=== PATIENT | female | born 1955 | race Caucasian/White ===

== ENCOUNTER → 2018-06-12 15:00 | Outpatient (CLI) | payer OTHER, SELFPAY | PROVIDERS: Family Provider Physician Assistant; PCP Physician Assistant | DX: Z23 Encounter for immunization (principal) | CPT/HCPCS: 90471; 90686 ==

== ENCOUNTER → 2018-07-20 06:51 | Outpatient (CLI) | payer OTHER, SELFPAY ==
[2018-07-20 08:13] LABS: Creatinine Urine Random 289.2 mg/dL
[2018-07-20 08:17] LABS: Microalbumi Creatinin Ratio Ur 4.1 ug/mg CR (<30); Microalbumin Urine Random 1.2 mg/dL (0-1.6)
[2018-07-20 08:21] LABS: Alanine Aminotransferase 36 IU/L (9-52); Albumin 4.3 g/dL (3.5-5.0); Albumin Globulin Ratio 1.4 (1.0-2.8); Alkaline Phosphatase 69 U/L (38-126); Aspartate Aminotransferase 28 IU/L (14-36); Bilirubin Total 0.4 mg/dL (0.2-1.3); Blood Urea Nitrogen 18 mg/dL (7-17); Calcium 9.6 mg/dL (8.4-10.2); Carbon Dioxide 29 mmol/L (22-32); Chloride 104 mmol/L (98-107); Cholesterol 147 mg/dL (140-199); Estimated Glomerular Filt Rate 56.4 mL/min (>60); Glucose 100 mg/dL (80-110); HDL Cholesterol 50 mg/dL (40-60); HEMOLYSIS < 15 (0-50); LDL Cholesterol Calculated 72 mg/dL (<100); Potassium 4.3 mmol/L (3.4-5.1); Sodium 145 mmol/L (137-145); Total Protein 7.3 g/dL (6.3-8.2); Triglycerides 127 mg/dL (35-150)
[2018-07-20 08:53] LABS: Thyroid Stimulating Hormone 1.72 uIU/mL (0.47-4.68)
== END ==
PROVIDERS: PCP Physician Assistant; Visit Provider Physician Assistant
DX: E03.9 Hypothyroidism, unspecified (principal); E78.5 Hyperlipidemia, unspecified; I10 Essential (primary) hypertension
CPT/HCPCS: 36415; 80053; 80061; 82043; 82570; 84443

== ENCOUNTER → 2018-08-17 10:38 | Outpatient (CLI) | payer OTHER, SELFPAY ==
--- NOTE | 2018-08-17 | DI.MG.S_ITS ---
BILATERAL DIGITAL SCREENING MAMMOGRAM 3D/2D WITH CAD: 08/17/2018 CLINICAL: Routine screening. Family history of breast cancer. Comparison is made to exams dated: 05/30/2017 mammogram, 04/18/2016 mammogram, and 12/02/2014 mammogram - [facility]. There are scattered fibroglandular elements in both breasts. Current study was also evaluated with a Computer Aided Detection (CAD) system. There are benign calcifications in both breasts. No significant masses, calcifications, or other findings are seen in either breast. There has been no significant interval change. IMPRESSION: There is no mammographic evidence of malignancy. A 1 year screening mammogram is recommended. This exam was interpreted at Station ID: [id number]. NOTE: For mammograms, a report in lay terms will be sent to the patient. Approximately 15% of breast malignancies will not be visualized mammographically. In the management of a palpable breast mass, a negative mammogram must not discourage biopsy of a clinically suspicious lesion. Electronically Signed By: Ameya hernandez/lola:08/17/2018 17:03:35 letter sent: Normal Exam ACR BI-RADS Category 2: Benign Finding(s) 3342F
== END ==
PROVIDERS: Family Provider Physician Assistant; PCP Physician Assistant; Visit Provider Physician Assistant
DX: Z12.31 Encounter for screening mammogram for malignant neoplasm of breast (principal); Z80.3 Family history of malignant neoplasm of breast
CPT/HCPCS: 77063; 77067

== ENCOUNTER → 2019-06-25 13:23 | Outpatient (CLI) | payer OTHER, SELFPAY | PROVIDERS: PCP Physician Assistant | DX: Z23 Encounter for immunization (principal) | CPT/HCPCS: 90471; 90686 ==

== ENCOUNTER → 2019-12-04 12:59 | Outpatient (CLI) | payer OTHER, SELFPAY ==
--- NOTE | 2019-12-04 13:00 | DI.US.S_ITS ---
PROCEDURE: US THYROID INDICATIONS: MULTINODULAR GOITER TECHNIQUE: Real-time scanning was performed of the thyroid gland, with image documentation. COMPARISON: [facility], US, THYROID, 01/11/2018, 10:48. FINDINGS: Right: Thyroid lobe measures 3.9 x 1.2 x 1.3 cm, and is homogeneous in echotexture. Left: Thyroid lobe measures 3.8 x 1.3 x 1.6 cm, and is homogenous in echotexture. Isthmus: 2 mm thick. Nodule number: One Location: Left inferior lobe Size: 1.4 x 1.2 x 1.0 cm compared to 1.3 x 1.2 x 1.2 cm. Composition: Solid Echogenicity: Hypoechoic Shape: wider than tall. Margins: Smooth Echogenic foci: None Total points: 4 ACR TI-RADS category: 4 Nodule number: 2 Location: Left inferior Size: 1.1 x 0.9 x 0.9 cm compared to 0.8 x 0.7 x 1.0 cm. Composition: Solid Echogenicity: Hypoechoic Shape: wider than tall. Margins: Smooth Echogenic foci: Punctate Total points: 7 ACR TI-RADS category: 5 IMPRESSION: 1. Minimal interval increase in size of lesion #2, now meeting criteria for FNA. 2. Stable appearance of lesion #1 in continued interval followup is recommended. 3. It is noted that the previously identified right inferior lesion is not well-seen on current exam. ACR TI-RADS definitions and recommendations: TI-RADS 1 (benign): 0 points. FNA not needed. TI-RADS 2 (not suspicious): 2 points. FNA not needed. TI-RADS 3 (mildly suspicious): 3 points. * FNA if 2.5 cm or larger, follow up if 1.5 cm or larger (at 1, 3, and 5 years). TI-RADS 4 (moderately suspicious): 4-6 points. * FNA if 1.5 cm or larger, follow up if 1 cm or larger (at 1, 2, 3, and 5 years). TI-RADS 5 (highly suspicious): 7 points or more. * FNA if 1 cm or larger, follow up if 0.5 cm or larger (every year for 5 years). Dictated by: Glenna Colon M.D. on 12/04/2019 at 15:43 Approved by: Glenna Colon M.D. on 12/04/2019 at 15:49
== END ==
PROVIDERS: PCP Student in an Organized Health Care Education/Training Program; Referring Provider Student in an Organized Health Care Education/Training Program; Visit Provider Student in an Organized Health Care Education/Training Program
DX: E04.2 Nontoxic multinodular goiter (principal); E03.9 Hypothyroidism, unspecified; M85.852 Other specified disorders of bone density and structure, left thigh; Z78.0 Asymptomatic menopausal state; Z91.89 Other specified personal risk factors, not elsewhere classified; Z79.899 Other long term (current) drug therapy
CPT/HCPCS: 76536; 77080

== ENCOUNTER → 2019-12-12 09:00 | Outpatient (CLI) | payer OTHER, SELFPAY ==
--- NOTE | 2019-12-12 | PATH_ITS ---
Note [facility] Accession Number: [id number] TESTS RESULT FLAG UNITS REF RANGE LAB Clinician Provided Cytology Information No. of containers..00 Previously Prepared Cytology Slide 35 Unknown Storage/container code(s) THYROID NODULE DIAGNOSIS: 01 LEFT INFERIOR THYROID NODULE, FINE NEEDLE ASPIRATION. NEGATIVE FOR MALIGNANT CELLS. ADEQUATE FOR EVALUATION. COLLOID AND FOLLICULAR GROUPS ARE PRESENT. BENIGN FOLLICULAR (GOITEROUS) NODULE (BETHESDA CATEGORY II), SEE COMMENT. COMMENT: MICROSCOPIC EXAMINATION REVEALS A MODERATELY CELLULAR ASPIRATE, COMPOSED OF COLLOID, FOLLICULAR GROUPS WITHOUT SIGNIFICANT CYTOLOGIC OR ARCHITECTURAL ATYPIA AND BACKGROUND MACROPHAGES. THESE FINDINGS SUPPORT A BENIGN FOLLICULAR (GOITEROUS) NODULE. CORRELATION WITH CLINICAL AND RADIOGRAPHIC FINDINGS IS RECOMMENDED. ACCORDING TO THE BETHESDA REPORTING SYSTEM FOR THYROID CYTOPATHOLOGY, THE RISK OF MALIGNANCY IN THE CATEGORY BENIGN-CATEGORY II IS 0-3%; THEREFORE RECOMMEND CONTINUED ULTRASOUND SURVEILLANCE WITH REPEAT FNA IF THE NODULE SIGNIFICANTLY INCREASES IN SIZE. Pathologist ICD10: 01 E04.2 01 NODULE NUMBER: 2 SIZE: 1.1 X 0.9 X 0.9 CM COMPARED TO 0.8 X 0.7 X 1.0 CM COMPOSITION: SOLID ECHOGENICITY: HYPOECHOIC SHAPE: WIDER THAN TALL. MARGINS: SMOOTH ECHOGENIC FOCI: PUNCTATE TOTAL POINTS: 7 ACR TI-RADS CATEGORY: 5 01 Juan Ansari MD, Pathologist NPI- [id number] Chris Courtney, Logging Equipment Operator ([facility]) 01 30 CC, PINK, CLEAR RECIEVED: 5 ALCOHOL FIXED AND 5 QUICK STAINED SLIDES WITH 1 RNA VIAL FOR FURTHER TESTING. /VDU 12/13/2019 0505 Local FLAG LEGEND: L-Low Normal,H-High Normal,LL-Alert Low,HH-Alert High <-Panic Low,>-Panic High,A-Abnormal,AA-Critical Abnormal Performed at: 01 =[facility] [address] [place] [address] [address], [place] [address] Ameya Otoole MD, Performed at: 01 [facility] [address] [place] [address] [address], [place], [place] [id number] MD Ameya Otoole MD Phone: [phone]
--- NOTE | 2019-12-12 09:02 | DI.US.S_ITS ---
PROCEDURE: US FINE NEEDLE ASPIRATION INDICATIONS: THYROID NODULE, LEFT INFERIOR, LARGEST ON RECENT SCAN TECHNIQUE: The indications, alternatives, benefits, risks, and complications of the procedure were explained to the patient. Written informed consent was obtained and placed in the chart. The thyroid region was examined sonographically and a site was chosen for ultrasound guided percutaneous sampling. The skin was prepared and draped in the usual fashion, and anesthetized with 1% lidocaine infiltrated from the skin down to the thyroid gland. Multiple passes were then performed, with contents emptied into an appropriate pathology specimen container. A bandage was applied to the area of access at completion of the study. COMPARISON: None. FINDINGS: Location(s) of lesion(s) sampled: Inferior left thyroid lobe Banco: 25 gauge hypodermic needles. Number of passes: 5 Medications: 1% lidocaine for local anaesthesia. Complications: None. IMPRESSION: Successful ultrasound-guided thyroid nodule fine needle aspiration, with cytology results pending. Please see chart below for management recommendations based on cytology results. [facility] ReportingRecommendationsNon-diagnostic* Repeat US-guided FNA, with on-site cytology evaluation if possible. * Repeated non-diagnostic nodules without high suspicion US features: close observation vs surgical consult. * Consider surgery if nodule has high suspicion US features, grows >20% in 2 dimensions on followup, or patient has clinical risk factors for malignancy. Benign* If nodule has high suspicion US features: repeat US and FNA within 12 months. * If nodule has low to intermediate suspicion US features: repeat US at 12-24 months. If nodule grows (20% increase in at least 2 dimensions, with minimal increase of 2 mm or >50% change in volume), or development of new suspicious US features, then repeat FNA or continue followup. * If nodule has very low suspicion US features: followup US at >24 months. Atypia of undetermined significance, follicular lesion of undetermined significanceRepeat FNA, molecular testing, followup US, or surgical consult.Follicular neoplasm, suspicious for follicular neoplasmSurgical consult; also consider molecular testing. Suspicious for malignancySurgical consult.MalignantSurgical consult. Dictated by: Chio Partida M.D. on 12/12/2019 at 11:18 Approved by: Chio Partida M.D. on 12/12/2019 at 11:19
== END ==
PROVIDERS: PCP Student in an Organized Health Care Education/Training Program; Referring Provider Student in an Organized Health Care Education/Training Program; Visit Provider Student in an Organized Health Care Education/Training Program
DX: E04.1 Nontoxic single thyroid nodule (principal)
CPT/HCPCS: 10005

== ENCOUNTER → 2019-12-16 10:08 | Outpatient (CLI) | payer OTHER, SELFPAY ==
[2019-12-18 03:54] LABS: COVID19 Sendout Not Detected (Not Detected)
== END ==
PROVIDERS: PCP Student in an Organized Health Care Education/Training Program; Visit Provider Family Medicine
DX: R68.89 Other general symptoms and signs (principal)
CPT/HCPCS: 87635

== ENCOUNTER → 2020-05-27 07:56 | Outpatient (CLI) | payer OTHER, SELFPAY ==
[2020-05-27 09:27] LABS: Clostridium Difficile Tox PCR Negative for C. diff
[2020-05-29 18:01] LABS: Lactoferrin, Fecal Quant 4.69 ug/mL(g) (0.00-7.24)
== END ==
PROVIDERS: PCP Student in an Organized Health Care Education/Training Program; Referring Provider Student in an Organized Health Care Education/Training Program; Visit Provider Student in an Organized Health Care Education/Training Program
DX: K52.9 Noninfective gastroenteritis and colitis, unspecified (principal)
CPT/HCPCS: 36415; 83631; 87493

== ENCOUNTER → 2020-11-18 15:17 | Outpatient (CLI) | payer OTHER, SELFPAY ==
[2020-11-18 16:22] LABS: BUN Creatinine Ratio 19.8 (6-22); Blood Urea Nitrogen 22 mg/dL (7-17); Calcium 9.9 mg/dL (8.4-10.2); Carbon Dioxide 30 mmol/L (22-32); Chloride 104 mmol/L (98-107); Estimated Glomerular Filt Rate 49.6 mL/min (>60); Glucose 103 mg/dL (80-110); HEMOLYSIS 18 (0-50); Potassium 4.2 mmol/L (3.4-5.1); Sodium 139 mmol/L (137-145)
== END ==
PROVIDERS: PCP Student in an Organized Health Care Education/Training Program; Referring Provider Student in an Organized Health Care Education/Training Program; Visit Provider Student in an Organized Health Care Education/Training Program
DX: I10 Essential (primary) hypertension (principal)
CPT/HCPCS: 36415; 80048

== ENCOUNTER → 2020-11-27 09:34 | Outpatient (CLI) | payer OTHER, SELFPAY ==
--- NOTE | 2020-11-27 09:35 | DI.MG.S_ITS ---
BILATERAL DIGITAL SCREENING MAMMOGRAM 3D/2D WITH CAD: 11/27/2020 CLINICAL: Routine screening. Family history of breast cancer. Comparison is made to exams dated: 08/17/2018 mammogram, 05/30/2017 mammogram, and 04/18/2016 mammogram - [facility]. There are scattered fibroglandular elements in both breasts. Current study was also evaluated with a Computer Aided Detection (CAD) system. There are benign calcifications in both breasts. No significant masses, calcifications, or other findings are seen in either breast. There has been no significant interval change. IMPRESSION: BENIGN There is no mammographic evidence of malignancy. A 1 year screening mammogram is recommended. This exam was interpreted at Station ID: [id number]. NOTE: For mammograms, a report in lay terms will be sent to the patient. Approximately 15% of breast malignancies will not be visualized mammographically. In the management of a palpable breast mass, a negative mammogram must not discourage biopsy of a clinically suspicious lesion. Electronically Signed By: Ameya hernandez/lola:11/27/2020 10:09:39 letter sent: Normal Exam ACR BI-RADS Category 2: Benign Finding(s) 3342F
== END ==
PROVIDERS: PCP Student in an Organized Health Care Education/Training Program; Referring Provider Student in an Organized Health Care Education/Training Program; Visit Provider Student in an Organized Health Care Education/Training Program
DX: Z12.31 Encounter for screening mammogram for malignant neoplasm of breast (principal); Z80.3 Family history of malignant neoplasm of breast
CPT/HCPCS: 77063; 77067

== ENCOUNTER → 2020-12-03 10:40 | Outpatient (CLI) | payer OTHER, SELFPAY ==
[2020-12-03 10:45] LABS: WBC Urine None Seen (0-5/HPF)
[2020-12-03 11:13] LABS: BUN Creatinine Ratio 18.7 (6-22); Blood Urea Nitrogen 20 mg/dL (7-17); Estimated Glomerular Filt Rate 51.8 mL/min (>60)
[2020-12-03 11:31] LABS: Appearance Urine UA CLEAR; Bilirubin Urine UA NEGATIVE (NEGATIVE); Color Urine UA YELLOW; Glucose Urine UA NEGATIVE (Negative); Ketones Urine UA NEGATIVE (NEGATIVE); Leukocyte Esterase Urine UA NEGATIVE (NEGATIVE); Nitrite Urine UA NEGATIVE (Negative); Occult Blood Urine UA 3+ (Negative); Protein Urine UA NEGATIVE (Negative); Specific Gravity Urine UA <=1.005 (1.000-1.035); Urobilinogen Urine UA 0.2 E.U./dL (0.2)
[2020-12-03 11:49] LABS: pH Urine UA 6.5 (4.5-8.0)
[2020-12-03 11:50] LABS: Bacteria Urine Occasional (0-1); Culture Indicated Urine Cult Not Indicated; RBC Urine 10-30/HPF (0-5/HPF); Squamous Epithelial Cell Urine 0-1 /HPF (0-5/HPF)
== END ==
PROVIDERS: PCP Student in an Organized Health Care Education/Training Program; Referring Provider Student in an Organized Health Care Education/Training Program; Visit Provider Student in an Organized Health Care Education/Training Program
DX: I10 Essential (primary) hypertension (principal); N17.9 Acute kidney failure, unspecified
CPT/HCPCS: 36415; 81001; 82565; 84520

== ENCOUNTER → 2020-12-11 09:34 | Outpatient (CLI) | payer OTHER, SELFPAY ==
--- NOTE | 2020-12-11 09:39 | DI.CT.S_ITS ---
PROCEDURE: CT ABDOMEN PELVIS WO/W CON INDICATIONS: Hematuria TECHNIQUE: Optional 5 mm thick noncontrast images acquired from the diaphragm to the symphysis pubis. After the administration of intravenous contrast, 5 mm thick images acquired from the diaphragm to the symphysis pubis after a 10-minute delay. 2 mm thick coronal and sagittal reformats were then performed of the kidneys and ureters. For radiation dose reduction, the following was used: automated exposure control, adjustment of mA and/or kV according to patient size. COMPARISON: None. FINDINGS: Image quality: Excellent. Lung bases: Lung bases are clear. Heart size is normal. Urinary system: Both kidneys are normal in size, without hydronephrosis or nephrolithiasis on pre-contrast images. No perinephric fat stranding. There is normal bilateral renal enhancement. Renal calyces appear normal in morphology when filled with contrast. Opacified portions of both ureters demonstrate normal caliber. Bladder wall thickness is normal. No calcified bladder stones. Other solid organs: Liver is normal in size and enhancement. Gallbladder appears normal . Biliary system is non dilated. Pancreas enhances normally. Spleen is normal in size and enhancement. No adrenal nodules. Peritoneum and bowel: Bowel loops demonstrate normal wall thickness and caliber. No free fluid or air. Nodes and vessels: No retroperitoneal or mesenteric adenopathy by size criteria. Aorta and inferior vena cava are normal in size. Abdominal wall: No ventral hernias. Pelvis: No pathologic free pelvic fluid. No inguinal hernias or adenopathy. Bones: No suspicious bony lesions. No vertebral body compression fractures. IMPRESSION: A urinary tract stone, urothelial mass, or renal cortical mass lesion is not seen. A source of hematuria is not identified. Dictated by: Ced Cancino M.D. on 12/11/2020 at 10:15 Approved by: Ced Cancino M.D. on 12/11/2020 at 10:15
== END ==
PROVIDERS: PCP Student in an Organized Health Care Education/Training Program; Referring Provider Student in an Organized Health Care Education/Training Program; Visit Provider Student in an Organized Health Care Education/Training Program
DX: R31.9 Hematuria, unspecified (principal)
CPT/HCPCS: 74178; Q9967

== ENCOUNTER → 2021-02-02 09:08 | Outpatient (CLI) | payer OTHER, SELFPAY ==
--- NOTE | 2021-02-02 | DI.US.S_ITS ---
PROCEDURE: US ABDOMEN COMPLETE INDICATIONS: EPIGASTRIC PAIN TECHNIQUE: Real-time scanning was performed of the abdominal and retroperitoneal organs, with image documentation. COMPARISON: [facility], CT, ABDOMEN/PELVIS WITH CONTRAST, 06/08/2011, 12:11. [facility], CT, ABDOMEN/PELVIS WITH CONTRAST, 12/20/2012, 8:41. [facility], CT, CT ABDOMEN PELVIS WO/W CON, 12/11/2020, 9:39. FINDINGS: Liver: Liver is normal in size and demonstrates diffusely increased echotexture. The main portal vein is patent measuring 7.6 mm in diameter and demonstrates hepatopetal flow. Gallbladder: There is a 1.2 x 1.3 x 1.0 cm hypoechoic mass involving the anterior wall of the gallbladder. On Doppler ultrasound, no definitive vascularity within the mass. The mass was present on the comparison CT dated 12/11/2020 and 12/20/2012 demonstrates mild contrast enhancement. No gallstones, gallbladder wall thickening, pericholecystic fluid collection or sonographic Ca sign. Biliary ducts: Intrahepatic bile ducts are non-dilated. Extrahepatic bile duct caliber measures 2.7 mm. Normal is 6-7 mm or less in diameter, or 10 mm or less post-cholecystectomy. Pancreas: Visualized portions of the pancreas are sonographically normal. Spleen: Spleen is normal in size and homogeneous in echotexture. Kidneys: Kidneys are normal in size and echotexture. Right kidney measures 9.4 cm long; left kidney measures 9.6 cm long. No hydronephrosis or nephrolithiasis. No solid masses. Aorta: Visualized aorta is normal in caliber at less than 3 cm. Iliacs: Proximal common iliac arteries are normal in caliber at less than 2.5 cm. IVC: Intrahepatic inferior vena cava is patent. Miscellaneous: No free abdominal fluid. IMPRESSION: 1. There is a 1.2 x 1.3 x 1.0 cm mass involving the anterior wall of the gallbladder. On Doppler ultrasound, there is no internal vascularity can be seen. This was visualized on the comparison CTs and demonstrated mild post contrast enhancement. Differential diagnosis include a small gallbladder diverticulum with impacted stone versus a polypoid mass. Recommend surgical consultation. 2. Otherwise normal exam. Dictated by: Chio Partida M.D. on 02/02/2021 at 10:28 Approved by: Chio Partida M.D. on 02/02/2021 at 13:20
== END ==
PROVIDERS: PCP Student in an Organized Health Care Education/Training Program; Referring Provider Internal Medicine Gastroenterology; Visit Provider Internal Medicine Gastroenterology
DX: R10.13 Epigastric pain (principal); K82.9 Disease of gallbladder, unspecified
CPT/HCPCS: 76700

== ENCOUNTER → 2021-03-02 15:06 | Outpatient (CLI) | payer OTHER, SELFPAY ==
[2021-03-02 15:58] LABS: COVID19 -Nasal RAPID Negative (Negative)
== END ==
PROVIDERS: PCP Student in an Organized Health Care Education/Training Program; Visit Provider Specialist
DX: Z20.822 Contact with and (suspected) exposure to COVID-19 (principal)
CPT/HCPCS: 87635; C9803

== ENCOUNTER 2021-03-03 13:05 | Day surgery (SDC) | payer OTHER, SELFPAY ==
[2021-03-03] VITALS (16 sets, daily range): BP systolic 107–133; BP diastolic 47–82; PULSE 71–98; RESP 11–18; TEMP 36.3–36.4; O2SAT 88–100; BMI 29.4
[2021-03-03] MEDS: LACTATED RINGERS 1,000 ML 100 ML IV ×2 (13:39→17:18)
--- NOTE | 2021-03-03 14:54 | PM.PREOP ---
Pre-operative Note COVID-19 COVID-19 status: Negative Result date/Date tested (Pos, Neg/Pending): 03/02/21 Interval Note History & Physical reviewed/Exam performed by Physician: Yes Changes to H&P: No
--- NOTE | 2021-03-03 15:45 | SUR.OPER ---
Supine on padded OR bed, head on pillow, safety belt at thigh, left arm padded and tucked at side. Right arm secured on padded arm oard <90 degrees abduction. Legs uncrossed. Padded footboard in place. Tape over blanket to secure lower legs.
[2021-03-03] MEDS: CEFAZOLIN 1 GM VIAL 2 GM IV (15:49)
[2021-03-03] MEDS: BUPIVACAINE 0.5% (PF) VIAL 30 ML INJ (15:51)
--- NOTE | 2021-03-03 17:46 | PM.OP.1 ---
Operative Date/Time/Diagnoses Date of procedure: 03/03/21 Time of procedure: 17:46 Pre-op diagnosis: Gallbladder polyp 1.3 cm in diameter Post-op diagnosis: other (Possible right hepatic or common duct injury. Procedure abandoned due to concern of ductal injury.) Procedure & Clinicians Procedure: Laparoscopic cholecystectomy. Procedure abandoned. See details below. Same procedure as scheduled: No Indications: Gallbladder polyp Surgeon: Jose Canales Click Yes if Unassisted: Yes Anesthesia Type: General Operative Notes Findings: Concern that I have divided a ductal structure. Please see details in the operative report And photos. Closure Type: primary Specimen(s): none sent Prosthetic devices, grafts, tissues, transplants, or devices: None Estimated Blood Loss (mL): 5 Blood products transfused: none Procedure in detail: The patient was placed supine on the operating room table underwent general endotracheal anesthesia. He was prepped draped in the usual fashion. Local anesthetic was infiltrated beneath the umbilicus a small curvilinear incision made there. It was carried down under direct vision in the peritoneal cavity. Stay sutures of 0 Vicryl were placed in the fascia. 12 mm port was inserted and the abdomen is insufflated. The patient was reposition and 3 additional (5 mm) ports were placed under the right costal margin. The gallbladder is identified and what appeared to be the polyp was seen at the top of the gallbladder. I grasped below it and elevated the gallbladder. Dissection was begun near the end of the gallbladder. The stomach was a little distended so an NG tube was placed to improve visualization. The gallbladder was encased in Fat along most of its surface. Because I was doing this for potentially neoplastic process and did not want to violate the planes of the surface of the gallbladder I decided to leave this in place and began my it dissection at what appeared to be the end of the gallbladder. I carefully incised along the surface of the fat at the end of the gallbladder and dissected bluntly to identify a structure that appeared to be the cystic duct going directly to the gallbladder. I it from surrounding structures. On its' surface it appeared to have the cystic artery as well. I could not easily dissect between them so I placed clips across both structures. I divided it leaving 4 clips on the side to remain in the patient. It did appear to pulsate. I encountered some strands of tissue that I thought could be venous and placed clips across this and divided it leaving these 2 clips in the patient. the clip on the end of the gallbladder came off and I placed a loop tie on the end to secure it. I began to bluntly dissect along the posterior aspect of the gallbladder and encountered another vascular structure. I was concerned that this might represent the right hepatic artery and left it intact. However as I dissected along the soft tissues at the medial edge of the end of the gallbladder near its junction with the liver, I encountered what appeared to be another ductal structure. Using principally blunt dissection I out a portion of this from surrounding structures leaving the posterior aspect intact. I became quite concerned that I was dealing with either a divided right hepatic duct or a divided common hepatic duct. I asked my partner to join me at this point in the operation. We examined the area together with no further work other than trimming the tails on the PDS tie. I decided to stop the procedure rather than risk any other injury to vital structures. The gallbladder appeared to be viable and intact. There was no leakage of material from the gallbladder or anywhere else in the region. My partner closed the patient tieing sutures at the umbilicus and closing the skin in all areas as I began making calls to transfer the patient to [facility] and make sure the insurance would allow transfer to [facility]. The patient was extubated and taken the recovery area in good condition. In the interim I have talked to the liver transplant surgeon at [facility] Dr. Fong. I explained my concern and that unfortunately we did not have the ability to do an ERCP to make a definitive diagnosis. Dr. Fong referred me to the chief resident for surgery protection agent who then referred me to Dr. Winters. He kindly accepted the patient in transfer to Acute Care Surgery when a bed was available. Complications: none Post-operative Condition: stable Disposition: PACU Plan for aftercare: Bring into observation until a bed is ready at [facility]
[2021-03-03] MEDS: fentaNYL 100 MCG/2 ML INJ IV (17:51)
[2021-03-03] MEDS: MEPERIDINE 50 MG/ML INJ 25 MG IV (18:34)
[2021-03-03 19:23] LABS: Add Manual Diff / Slide Review NO; Basophils Absolute Auto 0 /uL (0-100); Basophils Percent Auto 0.2 % (0-2); Eosinophils Absolute Auto 0 /uL (0-450); Eosinophils Percent Auto 0.3 % (2-4); Hematocrit 42.5 % (36-46); Hemoglobin 14.2 g/dL (12.0-16.0); Lymphocytes Absolute Auto 700 /uL (1100-4500); Lymphocytes Percent Auto 6.1 % (25-40); Mean Corpuscular HGB Conc 33.4 % (30-36); Mean Corpuscular Hemoglobin 29.2 PG (26-34); Mean Corpuscular Volume 87.4 fL (80-100); Monocytes Absolute Auto 300 /uL (0-900); Monocytes Percent Auto 2.3 % (3-14); Neutrophils Absolute Auto 10500 /uL (1500-7000); Neutrophils Percent Auto 91.1 % (50-75); Platelet Count 180 X10^3/uL (150-400); Red Blood Cell Count 4.86 X10^6/uL (4.0-5.2); Red Cell Distribution Width 13.4 % (11.6-14.8); White Blood Cell Count 11.5 X10^3/uL (4.5-11.0)
--- NOTE | 2021-03-03 19:29 | P.DS_ITS ---
History of Present Illness History of Present Illness Date Patient Seen: 03/03/21 Time Patient Seen: 19:29 Chief complaint: SDC Narrative: Patient is a woman who has a history of mild hypothyroidism, reflux disease, distant history of asthma, and sleep apnea who was brought for a laparoscopic cholecystectomy due to a gallbladder polyp. During the procedure I was concerned that I may have injured her liver ductal system and stop the operation and made arrangements for transfer to [facility]. Discharge Providers Provider Discharge Date: 03/03/21 Primary care physician: Rian Ruiz MD Consults: 03/03/21 18:57 Consult to Discharge Planning Routine Comment: Discharge provider: Jose Canales MD Summary Hospital Course Discharge Diagnosis: Possible liver duct injury. History of asthma. Hypothyroidism chronic Chronic sleep apnea using a CPAP device. Elevated cholesterol chronic on medication. Hospital Course: Patient underwent a laparoscopic exploration but the procedure was abandoned in the early stages due to concern over possible ductal injury. I talked to her and her about my concerns. I talked to them about transfer to [facility] and they were in agreement. I explained that she will probably have an ERCP. I explained that she may require an open major operation if my concern is realized. If she has a normal ERCP they may be able to proceed laparoscopically to complete the operation I started. I answered all of their questions. Await transfer. Status at Discharge Cognitive/behavioral status at discharge: oriented Functional status at discharge: bed bound (Fresh postop. Expect her to be independently ambulatory once the effects of the operation wear off.) Overall status at discharge: patient is not back to baseline Exam Vital Signs (past 8 hours): - 03/03/21 13:24 03/03/21 17:29 03/03/21 17:34 Temperature 97.4 F L 97.5 F L Pulse Rate 71 92 H 91 H Respiratory Rate 16 15 14 Blood Pressure 133/82 109/53 L 107/49 L Pulse Oximetry 99 95 96 03/03/21 17:39 03/03/21 17:44 03/03/21 17:55 Temperature Pulse Rate 91 H 90 94 H Respiratory Rate 12 11 L 14 Blood Pressure 114/55 L 111/47 L 112/52 L Pulse Oximetry 93 88 L 98 03/03/21 18:04 03/03/21 18:09 03/03/21 18:14 Temperature Pulse Rate 88 89 96 H Respiratory Rate 11 L 12 12 Blood Pressure 122/60 120/64 132/67 Pulse Oximetry 94 94 99 03/03/21 18:29 03/03/21 18:38 03/03/21 19:00 Temperature 97.3 F L 97.6 F Pulse Rate 94 H 97 H 98 H Respiratory Rate 12 12 18 Blood Pressure 132/67 114/64 124/67 Pulse Oximetry 94 94 Oxygen Delivery Method Nasal Cannula Oxygen Flow Rate 4 Narrative Exam Narrative: Dressings dry and intact. Patient a little somnolent but alert. Presently on supplemental oxygen in the acute postop period. She does not normally use oxygen at home. Objective Labs Result Diagrams: 03/03/21 19:17 03/03/21 19:17 Labs: Postop elevated AST 150 (normal less than 36) Postop elevated ALT 71 (normal less than 55) Alkaline phosphatase normal 84 (normal less than 126) Bilirubin normal 0.8 (normal less than 1.2) [facility], [facility] Medical History Asthma Colon polyps (03/01/16) Diverticular disease Endocervical polyp (03/24/06) GERD (gastroesophageal reflux disease) Hayfever Hyperlipidemia Hypertension Hypothyroidism Left ankle pain Nephrolithiasis (12/06/02) Osteopenia (12/27/16) Sleep apnea Thyroid nodule (2008) Surgical History (Updated 02/26/21 @ 13:28 by Raya Prado RN) History of colonoscopy (01/30/09) History of colonoscopy (02/2021) History of colonoscopy with polypectomy (03/01/16) History of colonoscopy with polypectomy (01/07/13) History of esophagogastroduodenoscopy (EGD) (02/2021) History of foot surgery History of lumpectomy (1983) Status post breast biopsy (1989) Status post rotator cuff repair (07/2016) Family History Mother Asthma Hypertension Sister Hypertension Social History household members: spouse Smoking Status: Former smoker Tobacco: How many years used: 6 second hand exposure: No alcohol intake: current substance use type: does not use Discharge Plan Discharge orders & Medications Prescriptions: No Action multivitamin [Multiple Vitamins] 1 EACH tablet 1 tab PO QDAY Qty: 0 RF: 0 albuterol sulfate [Ventolin HFA] 90 mcg/actuation HFA aerosol inhaler 2 puff inhalation Q4-6H PRN (Reason: shortness of breath or wheezing) Qty: 6.7 RF: 11 atorvastatin [Lipitor] 20 mg tablet 20 mg PO HS Qty: 90 RF: 3 Flovent HFA 110 mcg/actuation HFA aerosol inhaler 1 puff Inhalation Q12H Qty: 12 RF: 11 levothyroxine [Synthroid] 75 mcg tablet 75 mcg PO QAM Qty: 90 RF: 3 losartan 25 mg tablet 25 mg PO BID Qty: 180 RF: 3 metoprolol succinate [Toprol XL] 25 mg tablet extended release 24 hr 12.5 mg PO QDAY Qty: 45 RF: 3 omeprazole 20 mg capsule,delayed release(DR/EC) 20 mg PO BID Qty: 180 RF: 3 Hold Instructions: Trial of cessation ondansetron 4 mg tablet,disintegrating 4 mg PO Q8H PRN (Reason: nausea and vomiting) Qty: 10 RF: 11 ondansetron HCl [Zofran] 4 mg Tablet 4 mg PO Q6H PRN (Reason: Headache) RF: 0 Discharge Data Primary Care Provider: Rian Ruiz Attending Provider: Jose Canales
[2021-03-03 19:41] LABS: Alanine Aminotransferase 71 IU/L (<35); Albumin Globulin Ratio 1.3 (1.0-2.8); Alkaline Phosphatase 84 U/L (38-126); Aspartate Aminotransferase 150 IU/L (14-36); BUN Creatinine Ratio 18.9 (6-22); Bilirubin Total 0.8 mg/dL (0.2-1.3); Blood Urea Nitrogen 21 mg/dL (7-17); Calcium 9.4 mg/dL (8.4-10.2); Carbon Dioxide 29 mmol/L (22-32); Chloride 104 mmol/L (98-107); Estimated Glomerular Filt Rate 49.6 mL/min (>60); Globulin 3.1 g/dL (1.7-4.1); Glucose 128 mg/dL (80-110); HEMOLYSIS < 15 (0-50); Potassium 3.6 mmol/L (3.4-5.1); Sodium 139 mmol/L (137-145); Total Protein 7.1 g/dL (6.3-8.2)
--- NOTE | 2021-03-03 20:12 | PC.NURSE ---
admit/Evening Shift Note- Patient marrivedm via stretcher from PACU at 1900. Slider board used to transfer patient to bed. Admit questions done, physical assessment done, medications reviewed, and skin check completed. Patient orient to bed and bed controls, room, lights, phone, and call ramachandran/tv remote. Safety measures in place. Patient agrees to call for assistance. Bed alarm activated. Call ramachandran and phone within reach will continue to monitor.
[2021-03-03] MEDS: HYDROMORPHONE 1 MG INJ IV (20:39)
[2021-03-03] MEDS: METOPROLOL ER 25 MG TABLET PO (20:39)
[2021-03-03] MEDS: PANTOPRAZOLE DR 20 MG TABLET PO (20:39)
[2021-03-03] MEDS: LACTATED RINGERS 1,000 ML 125 ML IV (20:43)
--- NOTE | 2021-03-03 21:56 | PC.NURSE ---
Transfer Note- Patient transfer to [facility] in [facility] per Dr. Canales. Patient transport by ALS ambulance. Patient left via ambulance with IV LR running at 125cc/hr and with all personal items at 2115. Report called to RN at [facility] at 2100. Patients given address and phone number for [address]
== END 2021-03-03 21:15 | disposition short-term general hospital (02) ==
LOC: OR 13:06 → AC 18:03
PROVIDERS: PCP Student in an Organized Health Care Education/Training Program; Referring Provider Specialist; Visit Provider Specialist
PROC: 0FT44ZZ Resection of Gallbladder, Percutaneous Endoscopic Approach (ICD-10-PCS; CPT 47562; principal; 2021-03-03 14:15)
DX: K82.8 Other specified diseases of gallbladder (principal); Z53.8 Procedure and treatment not carried out for other reasons; I10 Essential (primary) hypertension; E03.9 Hypothyroidism, unspecified; J45.909 Unspecified asthma, uncomplicated
CPT/HCPCS: 47562; 36415; 80053; 85025; J0690; J1100; J1170; J2175; J2405; J2704; J3010

== ENCOUNTER → 2022-01-21 11:20 | Outpatient (CLI) | payer OTHER, SELFPAY ==
[2021-03-03 18:35] VITALS: BMI 29.4
--- NOTE | 2022-01-21 11:21 | DI.MG.S_ITS ---
BILATERAL DIGITAL SCREENING MAMMOGRAM 3D/2D WITH CAD: 01/21/2022 CLINICAL: Routine screening. Family history of breast cancer. Comparison is made to exams dated: 11/27/2020 mammogram, 08/17/2018 mammogram, 04/18/2016 mammogram, and 05/30/2017 mammogram - [facility]. There are scattered fibroglandular elements in both breasts. Current study was also evaluated with a Computer Aided Detection (CAD) system. There are benign calcifications in both breasts. No significant masses, calcifications, or other findings are seen in either breast. There has been no significant interval change. IMPRESSION: BENIGN There is no mammographic evidence of malignancy. A 1 year screening mammogram is recommended. This exam was interpreted at Station ID: [id number]. NOTE: For mammograms, a report in lay terms will be sent to the patient. Approximately 15% of breast malignancies will not be visualized mammographically. In the management of a palpable breast mass, a negative mammogram must not discourage biopsy of a clinically suspicious lesion. Electronically Signed By: Ralph saldana/lola:01/21/2022 13:09:14 letter sent: Normal Exam ACR BI-RADS Category 2: Benign Finding(s) 3342F
== END ==
PROVIDERS: PCP Student in an Organized Health Care Education/Training Program; Referring Provider Student in an Organized Health Care Education/Training Program; Visit Provider Student in an Organized Health Care Education/Training Program
DX: Z12.31 Encounter for screening mammogram for malignant neoplasm of breast (principal); Z80.3 Family history of malignant neoplasm of breast
CPT/HCPCS: 77063; 77067

== ENCOUNTER → 2022-03-22 16:34 | Outpatient (CLI) | payer MEDICARE, OTHER, SELFPAY ==
[2021-03-03 18:35] VITALS: BMI 29.4
[2022-03-22 18:02] LABS: Alanine Aminotransferase 32 IU/L (<35); Albumin 4.4 g/dL (3.5-5.0); Albumin Globulin Ratio 1.3 (1.0-2.8); Alkaline Phosphatase 84 U/L (38-126); Aspartate Aminotransferase 37 IU/L (14-36); BUN Creatinine Ratio 17.7 (6-22); Bilirubin Total 0.4 mg/dL (0.2-1.3); Blood Urea Nitrogen 22 mg/dL (7-17); Calcium 9.8 mg/dL (8.4-10.2); Carbon Dioxide 31 mmol/L (22-32); Chloride 103 mmol/L (98-107); Estimated Glomerular Filt Rate 49 mL/min (>60); Globulin 3.3 g/dL (1.7-4.1); Glucose 95 mg/dL (80-110); HEMOLYSIS < 15 (0-50); Lipase 95 U/L (23-300); Potassium 4.3 mmol/L (3.4-5.1); Sodium 140 mmol/L (137-145); Total Protein 7.7 g/dL (6.3-8.2)
[2022-03-22 18:32] LABS: TSH w/ Reflex to FT4 1.08 uIU/mL (0.47-4.68)
== END ==
PROVIDERS: PCP Student in an Organized Health Care Education/Training Program; Referring Provider Student in an Organized Health Care Education/Training Program; Visit Provider Student in an Organized Health Care Education/Training Program
DX: E03.9 Hypothyroidism, unspecified (principal); R10.13 Epigastric pain; S36.13XA Injury of bile duct, initial encounter; I10 Essential (primary) hypertension; K21.9 Gastro-esophageal reflux disease without esophagitis
CPT/HCPCS: 36415; 80053; 83690; 84443

== ENCOUNTER → 2022-10-04 07:46 | Outpatient (CLI) | payer MEDICARE, OTHER, SELFPAY ==
[2021-03-03 18:35] VITALS: BMI 29.4
--- NOTE | 2022-10-04 07:47 | DI.ECHO.S_ITS ---
[facility] +---------+ : : [address] : : : : [id number] : : : : Phone: [phone]+ Echocardiogram Report + + :Name: LUIS MATTHEW Study Date: 10/04/2022 Height: 64 in : :[facility] ReadingLocation: Weight: 175 lb : : Gender: Female BSA: 1.8 m2 : :: 1955 Age: 67 yrs BP: 113/75 mmHg: :Reason For Study: EXERCISE INTOLERANCE : :Ordering Physician: GOYO, : :SHAYE Performed By: Carmen Jackson : :Referring: SHAYE NANCE : + + Interpretation Summary The left ventricle is normal in size. There is mild concentric left ventricular hypertrophy. Left ventricular systolic function appears normal without focal wall motion abnormalities. The ejection fraction is estimated to be 60-65%. Diastolic parameters suggest a pseudonormalization pattern, consistent with probable elevated filling pressures. The right ventricle is normal in size and function. Pulmonary artery pressures cannot be estimated because of the lack of a measurable TR jet velocity. The left atrial size is normal. Right atrial size is normal. There is mild mitral regurgitation. There is no other significant valvular heart disease. The aortic root is normal size. Procedure: A two-dimensional transthoracic echocardiogram with color flow and Doppler was performed. The study quality was technically adequate. There is no prior echocardiogram noted for this patient. The patient was in sinus rhythm with heart rates between 59-67 bpm during the exam. Left Ventricle: The left ventricle is normal in size. There is mild concentric left ventricular hypertrophy. Left ventricular systolic function appears normal without focal wall motion abnormalities. The ejection fraction is estimated to be 60-65%. Diastolic parameters suggest a pseudonormalization pattern, consistent with probable elevated filling pressures. Right Ventricle: The right ventricle is normal in size and function. Atria: The left atrial size is normal. Right atrial size is normal. There is no Doppler evidence for an interatrial shunt. Mitral Valve: The mitral valve is normal in structure and function. There is mild mitral regurgitation. Aortic Valve: The aortic valve is trileaflet. The aortic valve opens well. There is no aortic valve stenosis. No aortic regurgitation is present. Tricuspid Valve: The tricuspid valve is normal in structure and function. There is trace tricuspid regurgitation. Pulmonary artery pressures cannot be estimated because of the lack of a measurable TR jet velocity. Pulmonic Valve: The pulmonic valve is not well visualized. There is no pulmonic valvular regurgitation. There is no other significant valvular heart disease. Great Vessels: The aortic root is normal size. The dimensions of the ascending aorta are normal. The IVC is of normal diameter and collapses greater than 50% with a sniff. This suggests a low right atrial pressure of 3 mm Hg. Pericardium/ Pleura There is no pericardial effusion. There is no pleural effusion. MMode/2D Measurements & Calculations LVIDd: 4.2 cm LVOT diam: 2.1 cm LVIDs: 3.1 cm Ao root diam: 3.7 cm FS: 27.6 % asc Aorta Diam: 3.4 cm IVSd: 1.1 cm Ao Arch Diam (Prox Trans): 2.6 cm LVPWd: 1.1 cm LV cotto. diameter/BSA (cm/m^2): 2.3 LV sys. diameter/BSA (cm/m^2): 1.7 LA A2 area: 18.5 cm2 RA long axis: 4.7 cm LA A4 area: 14.3 cm2 RA area: 13.1 cm2 LA length (vol): 5.0 cm RA vol: 30.9 ml LA vol: 44.8 ml RA : 16.7 ml/m2 LA vol index: 24.2 ml/m2 IVC diam: 1.3 cm RVD1 (basal): 2.9 cm RVD2 (mid): 2.4 cm TAPSE: 2.1 cm Doppler Measurements & Calculations Ao V2 max: 126.4 cm/sec LVOT Max Serge: 119.6 cm/sec Ao V2 mean: 88.3 cm/sec LV V1 max P.7 mmHg Ao max P.4 mmHg LV V1 VTI: 27.6 cm Ao mean P.5 mmHg RUTHIE(I,D): 3.5 cm2 Ao V2 VTI: 26.2 cm RUTHIE(V,D): 3.2 cm2 sev ratio: 1.1 RUTHIE indexed to BSA (cm^2/m^2): 1.9 MV E max serge: 91.5 cm/sec PA V2 max: 100.9 cm/sec MV A max serge: 80.4 cm/sec PA V2 mean: 75.4 cm/sec MV E/A: 1.1 PA mean P.5 mmHg Med Peak E' Serge: 5.2 cm/sec PA pr(Accel): 41.3 mmHg E/E' med: 17.7 Lat Peak E' Serge: 7.1 cm/sec E/E' lat: 12.8 E/e' average: 15.2 MV dec time: 0.20 sec SV(OT): 92.9 ml Reading Physician:09:46 AM
== END ==
PROVIDERS: PCP Student in an Organized Health Care Education/Training Program; Referring Provider Student in an Organized Health Care Education/Training Program; Visit Provider Student in an Organized Health Care Education/Training Program
DX: R68.89 Other general symptoms and signs (principal); I34.0 Nonrheumatic mitral (valve) insufficiency
CPT/HCPCS: 93306

== ENCOUNTER → 2022-10-24 13:18 | Outpatient (CLI) | payer MEDICARE, OTHER, SELFPAY ==
[2021-03-03 18:35] VITALS: BMI 29.4
--- NOTE | 2022-11-11 16:10 | PM.CARDMON.1 ---
Veterinary Technician Report Referral & Results Date Patient Seen: 10/24/22 Requesting provider: Rian Ruiz Duration of monitoring (days): 10 Diary information: There were 9 patient triggered events and 8 patient diary entries Patient triggered events were variably associated with (within 45 seconds) PVCs, PACs, ventricular bigeminy and ventricular trigeminy Patient diary events were variably associated with (within 45 seconds) sinus rhythm, PVCs including ventricular bigeminy and ventricular trigeminy Data: Minimum heart rate identified was 47 beats per minute at 05:09 on 10/25/2022 Maximum sinus heart rate was 147 beats per minute at 19:43 on 10/27/2022 Maximum overall heart rate was 184 beats per minute at 09:09 on 10/26/2022 during a run of SVT Less than 1% of identified beats were ventricular or supraventricular ectopic in origin, which would classify them as rare., but this did include a 1 minute 16 second run of ventricular trigeminy and a 28 second run of ventricular bigeminy There were no pauses of 3 seconds or longer or episodes of atrial fibrillation identified on this study There were 8 runs of SVT identified the longest lasting 13.6 seconds at an average rate of 134 beats per minute which suggest possible atrial tachycardia rather than true SVT 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
== END ==
PROVIDERS: PCP Student in an Organized Health Care Education/Training Program; Referring Provider Student in an Organized Health Care Education/Training Program; Visit Provider Student in an Organized Health Care Education/Training Program
DX: R68.89 Other general symptoms and signs (principal)
CPT/HCPCS: 93246; 93248

== ENCOUNTER 2022-12-30 12:17 | Emergency (ER) | payer MEDICARE, OTHER, SELFPAY ==
[2021-03-03 18:35] VITALS: BMI 29.4
[2022-12-30 12:24] VITALS: BP 141/83; PULSE 87; RESP 17; TEMP 36.6; O2SAT 96
--- NOTE | 2022-12-30 12:29 | DI.RAD.S_ITS ---
PROCEDURE: XR CHEST 1V INDICATIONS: chest pain TECHNIQUE: One view of the chest was acquired. COMPARISON: [facility], CR, XR CHEST 1 VIEW, 09/21/2022, 2:18. [facility], CR, CHEST 2 VIEW, 12/11/2008, 16:22. FINDINGS: Surgical changes and devices: Cholecystectomy clips are seen. Lungs and pleura: On this semiupright portable chest examination, no large pneumothorax or large pleural effusions are seen. No focal infiltrates are seen. Low lung volumes are noted. This causes a crowded appearance to the lung markings and limits evaluation. Mediastinum: Mediastinal contours appear normal. Heart size is normal. Bones and chest wall: No suspicious bony lesions. Age-appropriate bony degenerative changes are seen. Overlying soft tissues appear unremarkable. IMPRESSION: Portable chest within normal limits for age, with note made postoperative and degenerative change. Dictated by: Max Mcmahon M.D. on 12/30/2022 at 11:46 Approved by: Max Mcmahon M.D. on 12/30/2022 at 11:47
[2022-12-30 13:00] VITALS: BP 151/70
[2022-12-30 13:09] LABS: Add Manual Diff / Slide Review NO; Basophils Absolute Auto 100 /uL (0-100); Basophils Percent Auto 0.8 % (0-2); Eosinophils Absolute Auto 300 /uL (0-450); Eosinophils Percent Auto 4.5 % (2-4); Hematocrit 41.3 % (36-46); Hemoglobin 14.2 g/dL (12.0-16.0); Lymphocytes Absolute Auto 1600 /uL (1100-4500); Lymphocytes Percent Auto 23.4 % (25-40); Mean Corpuscular HGB Conc 34.3 % (30-36); Mean Corpuscular Hemoglobin 29.8 PG (26-34); Mean Corpuscular Volume 86.8 fL (80-100); Monocytes Absolute Auto 600 /uL (0-900); Monocytes Percent Auto 9.6 % (3-14); Neutrophils Absolute Auto 4100 /uL (1500-7000); Neutrophils Percent Auto 61.7 % (50-75); Platelet Count 175 X10^3/uL (150-400); Red Blood Cell Count 4.76 X10^6/uL (4.0-5.2); Red Cell Distribution Width 14.1 % (11.6-14.8); White Blood Cell Count 6.7 X10^3/uL (4.5-11.0)
[2022-12-30 13:10] VITALS: PULSE 79; RESP 12; O2SAT 93
[2022-12-30 13:10] LABS: INR 1.1 (0.9-1.3); Prothrombin Time 12.3 SECONDS (10.1-12.7)
[2022-12-30 13:11] VITALS: BP 135/67; PULSE 77; RESP 18; O2SAT 96
[2022-12-30 13:12] LABS: Alanine Aminotransferase 28 IU/L (<35); Albumin 4.2 g/dL (3.5-5.0); Albumin Globulin Ratio 1.2 (1.0-2.8); Alkaline Phosphatase 59 U/L (38-126); Aspartate Aminotransferase 36 IU/L (14-36); BUN Creatinine Ratio 22.2 (6-22); Bilirubin Total 0.7 mg/dL (0.2-1.3); Blood Urea Nitrogen 22 mg/dL (7-17); Calcium 9.8 mg/dL (8.4-10.2); Carbon Dioxide 29 mmol/L (22-32); Chloride 102 mmol/L (98-107); Creatine Kinase 68 U/L (30-135); Estimated Glomerular Filt Rate > 60 mL/min (>60); Globulin 3.6 g/dL (1.7-4.1); Glucose 102 mg/dL (80-110); HEMOLYSIS 72 (0-50); Lipase 89 U/L (23-300); Potassium 4.7 mmol/L (3.4-5.1); Sodium 138 mmol/L (137-145); Total Protein 7.8 g/dL (6.3-8.2)
[2022-12-30 13:23] LABS: Troponin I < 0.012 ng/mL (0.01-0.034)
[2022-12-30 13:30] VITALS: BP 131/75; PULSE 79; RESP 20; O2SAT 97
--- NOTE | 2022-12-30 13:37 | ED.GENADULT ---
HPI - General Adult General Chief complaint: Syncope Stated complaint: Syncope Time Seen by Provider: 12/30/22 13:19 Source: patient and EMS Mode of arrival: EMS Limitations: no limitations History of Present Illness HPI narrative: Patient is a 67-year-old female who is brought in by EMS for evaluation of a syncopal episode. He is reported by the patient that she was standing at the [employer] grocery shopping. She states that the next thing she knew she was lying on the ground. She did have some upper abdominal discomfort prior to falling however she has had this discomfort off and on since she had her gallbladder out. She did not feel that this pain was any different than prior. Currently she is feeling a little nauseous but otherwise asymptomatic. Prior to the episode she was not having chest pain or shortness of breath. No lightheadedness. No numbness or tingling in her upper and lower extremities. She did not injure anything from the fall. Related Data Home Medications Medication Instructions Recorded Confirmed multivitamin (Multiple Vitamins 1 tab PO QDAY ##0 11/08/16 12/30/22 tablet) Previous Rx's Medication Instructions Recorded albuterol sulfate 90 mcg/actuation 2 puff inhalation Q4-6H PRN 11/18/20 aerosol inhaler (Ventolin HFA) shortness of breath or wheezing #6.7 grams dicyclomine 10 mg capsule 10 mg PO QID #360 caps 03/22/22 famotidine 20 mg tablet 20 mg PO BID #180 tabs 03/22/22 ondansetron 4 mg disintegrating 4 mg PO Q8H PRN nausea and 03/22/22 tablet vomiting #10 tabs fluticasone propionate 110 1 puff inhalation Q12H #12 grams 04/19/22 mcg/actuation HFA aerosol inhaler (Flovent HFA) levothyroxine 75 mcg tablet 75 mcg PO QAM #90 tabs 04/19/22 (Synthroid) losartan 25 mg tablet 25 mg PO BID #180 tabs 04/19/22 metoprolol succinate 25 mg 12.5 mg PO QDAY #45 tabs 04/19/22 tablet,extended release 24 hr (Toprol XL) atorvastatin 20 mg tablet (Lipitor) 20 mg PO HS #90 tabs 07/28/22 Allergies Allergy/AdvReac Type Severity Reaction Status Date / Time metronidazole AdvReac Severe Abdominal Verified 12/30/22 12:27 cramps PRESERVATIVE IN SULAMYD EYE Allergy Severe SWELLING Uncoded 12/30/22 12:27 DROPS Review of Systems Review of Systems ROS Unobtainable: All systems reviewed & are unremarkable except as noted in HPI and below Patient History Medical History Asthma dependent on inhaled steroids (12/19/16) Cervical stenosis (uterine cervix) Colon polyps (03/01/16) Diverticulosis of intestine (01/10/13) Endocervical polyp (03/24/06) Essential hypertension (05/12/11) Gall bladder polyp Gastroesophageal reflux disease Hayfever Hyperlipidemia (04/11/13) Hypothyroidism (05/12/11) Left ankle pain Migraine without aura and without status migrainosus, not intractable Nephrolithiasis (12/06/02) Obstructive sleep apnea syndrome (05/01/14) Osteopenia (12/27/16) Thyroid nodule (2008) Transection of common bile duct Surgical History History of colonoscopy (01/30/09) History of colonoscopy (02/2021) History of colonoscopy with polypectomy (03/01/16) History of colonoscopy with polypectomy (01/07/13) History of esophagogastroduodenoscopy (EGD) (02/2021) History of foot surgery History of lumpectomy (1983) Status post breast biopsy (1989) Status post rotator cuff repair (07/2016) Family History Mother Asthma Hypertension Sister Hypertension Social History household members: spouse Smoking Status: Former smoker Tobacco: How many years used: 6 second hand exposure: No alcohol intake: current substance use type: does not use Smoking Status: Former smoker alcohol intake frequency: a few times a week Substance Use Type: does not use Exam Initial Vital Signs Initial Vital Signs: Vital Signs Temperature 98 F 12/30/22 12:24 Pulse Rate 87 12/30/22 12:24 Respiratory Rate 17 12/30/22 12:24 Blood Pressure 141/83 H 12/30/22 12:24 Pulse Oximetry 96 12/30/22 12:24 Oxygen Delivery Method Room Air 12/30/22 12:24 HENMT Head: normal to inspection and normocephalic Resp Effort & Inspection: normal respiratory effort Auscultation: clear to auscultation bilaterally Cardio Rate: regular rate Rhythm: regular rhythm GI Inspection: normal to inspection Skin General: no rashes or lesions noted Neuro General: patient alert, patient awake, patient oriented x3 and moves all extremities Cognition: normal cognition Speech: speech normal Extrem General: normal to inspection and capillary refill normal Course Orders Ordered: ED Orders 12/30/22 12:29 XR chest 1V Stat 12/30/22 12:34 EKG-12 Lead Stat 12/30/22 12:50 Complete Blood Count AUTO DIFF Stat Comprehensive Metabolic Panel Stat Lipase Stat Magnesium Stat Prothrombin Time INR Stat Troponin & CK Cardiac Panel Stat Vital Signs Vital signs: Vital Signs - 8 hr 12/30/22 12:24 Temperature 98 F Pulse Rate 87 Respiratory Rate 17 Blood Pressure 141/83 H Pulse Oximetry 96 Oxygen Delivery Method Room Air Medical Decision Making Lab Data Lab results reviewed: Yes I reviewed the patient's lab results. 12/30/22 12:50 12/30/22 12:50 Labs: Lab Results 12/30/22 12/30/22 12/30/22 Range/Units 12:50 12:50 12:50 WBC 6.7 (4.5-11.0) X10^3/uL RBC 4.76 (4.0-5.2) X10^6/uL Hgb 14.2 (12.0-16.0) g/dL Hct 41.3 (36-46) % MCV 86.8 (80-100) fL MCH 29.8 (26-34) PG MCHC 34.3 (30-36) % RDW 14.1 (11.6-14.8) % Plt Count 175 (150-400) X10^3/uL Neut % (Auto) 61.7 (50-75) % Lymph % (Auto) 23.4 L (25-40) % [place] % (Auto) 9.6 (3-14) % Eos % (Auto) 4.5 H (2-4) % Baso % (Auto) 0.8 (0-2) % Neut # (Auto) 4100 (8078-2922) /uL Lymph # (Auto) 1600 (5186-8922) /uL [place] # (Auto) 600 (0-900) /uL Eos # (Auto) 300 (0-450) /uL Baso # (Auto) 100 (0-100) /uL PT 12.3 (10.1-12.7) SECONDS INR 1.1 (0.9-1.3) Sodium 138 (137-145) mmol/L Potassium 4.7 (3.4-5.1) mmol/L Chloride 102 (98-107) mmol/L Carbon Dioxide 29 (22-32) mmol/L BUN 22 H (7-17) mg/dL Creatinine 0.99 (0.52-1.04) mg/dL Estimated GFR > 60 (>60) mL/min BUN/Creatinine Ratio 22.2 H (6-22) Glucose 102 (80-110) mg/dL Calcium 9.8 (8.4-10.2) mg/dL Magnesium 2.0 (1.6-2.3) mg/dL Total Bilirubin 0.7 (0.2-1.3) mg/dL AST 36 (14-36) IU/L ALT 28 (<35) IU/L Alkaline Phosphatase 59 (38-126) U/L Total Creatine Kinase 68 (30-135) U/L CK-MB (CK-2) TNP CK-MB (CK-2) Rel Index TNP Troponin I < 0.012 (0.01-0.034) ng/mL Total Protein 7.8 (6.3-8.2) g/dL Albumin 4.2 (3.5-5.0) g/dL Globulin 3.6 (1.7-4.1) g/dL Albumin/Globulin Ratio 1.2 (1.0-2.8) Lipase 89 (23-300) U/L Imaging Data Chest x-ray: Radiologist's Impression: PROCEDURE:? XR CHEST 1V ? INDICATIONS:? chest pain ? TECHNIQUE:? One view of the chest was acquired.? ? COMPARISON:? [facility], , XR CHEST 1 VIEW, 09/21/2022, 2:18.? [facility], , CHEST 2 VIEW, 12/11/2008, 16:22. ? FINDINGS:? ? Surgical changes and devices:? Cholecystectomy clips are seen.? ? Lungs and pleura:? On this semiupright portable chest examination, no large pneumothorax or large pleural effusions are seen.? No focal infiltrates are seen.? Low lung volumes are noted. This causes a crowded appearance to the lung markings and limits evaluation.? ? Mediastinum:? Mediastinal contours appear normal.? Heart size is normal.? ? Bones and chest wall:? No suspicious bony lesions.? Age-appropriate bony degenerative changes are seen.? Overlying soft tissues appear unremarkable.? ? ? IMPRESSION:? Portable chest within normal limits for age, with note made postoperative and degenerative change. ECG Data Attestation: I personally reviewed and interpreted this ECG as follows: Interpretation: Sinus rhythm Ventricular rate 81 Left axis deviation Normal QRS Normal QTC No ST T wave changes MDM Narrative Medical decision making narrative: Patient states she is feeling somewhat nauseous but declined the offer for nausea medication. He is afebrile. Labs unremarkable. Patient is low risk per the Leonard syncope rule. There were no injuries from the event. She does have a history of PVCs but is not having any of those currently. Unsure the exact etiology of the syncopal episode. We did discuss the importance of her following up with her primary doctor to discuss further workup. Was given return precautions. She expressed understanding and agreement Discharge Plan Departure Patient Disposition: Home Clinical Impression: Syncope Instructions: DI for Syncope in Adults (Fainting) Activity Restrictions/Additional Instructions: I recommend that you continue to take all of your medications as directed and contact your primary doctor for follow-up. Return to the emergency department for any new symptoms. Prescriptions: No Action multivitamin [Multiple Vitamins] 1 EACH tablet 1 tab PO QDAY Qty: 0 albuterol sulfate [Ventolin HFA] 90 mcg/actuation HFA aerosol inhaler 2 puff inhalation Q4-6H PRN (Reason: shortness of breath or wheezing) Qty: 6.7 11RF losartan 25 mg tablet 25 mg PO BID Qty: 180 3RF levothyroxine [Synthroid] 75 mcg tablet 75 mcg PO QAM Qty: 90 3RF metoprolol succinate [Toprol XL] 25 mg tablet extended release 24 hr 12.5 mg PO QDAY Qty: 45 3RF Flovent HFA 110 mcg/actuation HFA aerosol inhaler 1 puff Inhalation Q12H Qty: 12 11RF atorvastatin [Lipitor] 20 mg tablet 20 mg PO HS Qty: 90 2RF dicyclomine 10 mg capsule 10 mg PO QID Qty: 360 3RF famotidine 20 mg tablet 20 mg PO BID Qty: 180 3RF ondansetron 4 mg tablet,disintegrating 4 mg PO Q8H PRN (Reason: nausea and vomiting) Qty: 10 11RF Referrals: Rian Ruiz MD [Primary Care Provider] - Stand Alone Forms: Patient Portal/API
[2022-12-30 14:13] VITALS: BP 131/75; PULSE 86; RESP 16; O2SAT 96
== END 2022-12-30 14:14 | disposition home or self-care (01) ==
PROVIDERS: Emergency Provider Emergency Medicine; PCP Student in an Organized Health Care Education/Training Program
DX: R55 Syncope and collapse (principal); R10.9 Unspecified abdominal pain
CPT/HCPCS: 36415; 71045; 80053; 81003; 82550; 83690; 83735; 84484; 85025; 85610; 93005; 93010; 99283

== ENCOUNTER → 2023-03-24 | Outpatient (CLI) | payer MEDICARE, OTHER, SELFPAY ==
[2021-03-03 18:35] VITALS: BMI 29.4
--- NOTE | 2023-03-24 11:09 | DI.RAD.S_ITS ---
Bone Density Report Name: LUIS MATTHEW Age: 67 Sex: Female Ethnicity: White Date of : 1955 Indication: osteopenia; Referring Provider: EDILBERTO PERKINS Study: Bone densitometry was performed. Exam Date: March 24, 2023 Accession number: [id number] Bone Density: Region BMD T-score Z-score Classification AP Spine(L1-L4) 0.999 -0.4 1.4 Normal Femoral Neck (Left) 0.677 -1.5 0.0 Osteopenia Total Hip (Left) 0.779 -1.3 -0.1 Osteopenia Femoral Neck (Right) 0.697 -1.4 0.2 Osteopenia Total Hip (Right) 0.770 -1.4 -0.1 Osteopenia Total Hip Mean 0.775 -1.4 -0.1 Osteopenia World Health Organization criteria for BMD impression classify patients as: Normal (T-score at or above -1.0), Osteopenia (T-score between -1.0 and -2.5), or Osteoporosis (T-score at or below -2.5). 10-year Fracture Risk(1): Major Osteoporotic Fracture 8.8% Hip Fracture 1.0% Reported Risk Factors: [place] (), Neck BMD=0.677, BMI=30.0 (1) FRAX(R) Version 3.08. Fracture probability calculated for an untreated patient. Fracture probability may be lower if the patient has received treatment. Previous Exams: -- Region Exam Age BMD T-score BMD Change BMD Change Date g/cm2 vs Baseline vs Previous -- AP Spine (L1-L4) 03/24/2023 67 0.999 -0.4 -0.020 (-2.0%)# -0.020 (-2.0%)# 12/04/2019 64 1.020 -0.2 Total Hip(Left) 03/24/2023 67 0.779 -1.3 -0.033 (-4.1%)# -0.033 (-4.1%)# 12/04/2019 64 0.813 -1.1 Total Hip(Right) 03/24/2023 67 0.770 -1.4 -0.050 (-6.1%)# -0.050 (-6.1%)# 12/04/2019 64 0.820 -1.0 -- *Denotes significance at 95% confidence level, LSC for AP Spine = 0.022 g/cm2, LSC for Total Hip = 0.027 g/cm2 # Denotes dissimilar scan types or analysis methods Impression: The patient has low bone mass, based on the Left Femoral Neck T-score. The patient has an estimated ten-year risk of hip fracture of 1% and an estimated ten-year risk of major fracture of 8.8%, based on the WHO FRAX algorithm. No significant bone loss was observed. Discussion: BONE DENSITY IS LOW AT ONE OR MORE SKELETAL SITES. This patient's lowest T-score is low at one or more skeletal sites. It meets the World Health Organization's (WHO) criteria for low bone mass (T-score between -1.0 and -2.5). The patient's 10-year risk of fracture as calculated by FRAX is less than the threshold where pharmacological therapy is recommended by the National Osteoporosis Foundation (NOF). However, all treatment decisions require clinical judgment and consideration of individual patient factors, including patient preferences, comorbidities, previous drug use, risk factors not captured in the FRAX model (e.g., frailty, falls, vitamin D deficiency, increased bone turnover, interval significant decline in bone density) and possible under or overestimation of fracture risk by FRAX. The patient should follow a healthful lifestyle (good nutrition with adequate calcium and vitamin D, and appropriate weight-bearing exercise). Follow-Up: Consider repeating this study in 2 to 3 years to reassess this patient's status, or sooner if there is some new clinical indication. Reported by: ED GONZALEZ M.D. on 03/24/2023 1:41:00 PM.
--- NOTE | 2023-03-24 11:09 | DI.MG.S_ITS ---
BILATERAL DIGITAL SCREENING MAMMOGRAM 3D/2D WITH CAD: 03/24/2023 CLINICAL: Routine screening. Family history of breast cancer. Comparison is made to exams dated: 01/21/2022 mammogram, 11/27/2020 mammogram, 08/17/2018 mammogram, and 05/30/2017 mammogram - [facility]. There are scattered areas of fibroglandular density in both breasts (category b / 25%-50% glandular tissue). Current study was also evaluated with a Computer Aided Detection (CAD) system. There are benign calcifications in both breasts. No significant masses, calcifications, or other findings are seen in either breast. There has been no significant interval change. IMPRESSION: BENIGN There is no mammographic evidence of malignancy. A 1 year screening mammogram is recommended. Based on the Tyrer Cuzick model (a risk assessment model) the patient's lifetime risk is 7.3% and her 10 year risk is 3.5%. According to the ACR, ACS, and NCCN guidelines, an annual breast MRI exam along with mammogram is recommended if the patient's lifetime risk is 20% or greater. This exam was interpreted at Station ID: [id number]. NOTE: For mammograms, a report in lay terms will be sent to the patient. Approximately 15% of breast malignancies will not be visualized mammographically. In the management of a palpable breast mass, a negative mammogram must not discourage biopsy of a clinically suspicious lesion. Electronically Signed By: Héctor hutton/lola:03/24/2023 12:00:59 letter sent: Normal Exam ACR BI-RADS Category 2: Benign Finding(s) 3342F
== END ==
PROVIDERS: PCP Internal Medicine; Referring Provider Pediatrics; Visit Provider Pediatrics
DX: Z78.0 Asymptomatic menopausal state (principal); Z12.31 Encounter for screening mammogram for malignant neoplasm of breast; Z80.3 Family history of malignant neoplasm of breast; M85.852 Other specified disorders of bone density and structure, left thigh
CPT/HCPCS: 77063; 77067; 77080

== ENCOUNTER → 2023-04-24 06:43 | Outpatient (CLI) | payer MEDICARE, OTHER, SELFPAY ==
[2021-03-03 18:35] VITALS: BMI 29.4
[2023-04-24 08:25] LABS: Add Manual Diff / Slide Review NO; Basophils Absolute Auto 0 /uL (0-100); Basophils Percent Auto 0.8 % (0-2); Eosinophils Absolute Auto 400 /uL (0-450); Eosinophils Percent Auto 7.2 % (2-4); Hematocrit 39.9 % (36-46); Hemoglobin 13.4 g/dL (12.0-16.0); Lymphocytes Absolute Auto 1900 /uL (1100-4500); Lymphocytes Percent Auto 36.5 % (25-40); Mean Corpuscular HGB Conc 33.7 % (30-36); Mean Corpuscular Hemoglobin 29.4 PG (26-34); Mean Corpuscular Volume 87.3 fL (80-100); Monocytes Absolute Auto 600 /uL (0-900); Monocytes Percent Auto 11.3 % (3-14); Neutrophils Absolute Auto 2300 /uL (1500-7000); Neutrophils Percent Auto 44.2 % (50-75); Platelet Count 169 X10^3/uL (150-400); Red Blood Cell Count 4.57 X10^6/uL (4.0-5.2); Red Cell Distribution Width 13.5 % (11.6-14.8); White Blood Cell Count 5.2 X10^3/uL (4.5-11.0)
[2023-04-24 08:43] LABS: Alanine Aminotransferase 24 IU/L (<35); Albumin 3.9 g/dL (3.5-5.0); Albumin Globulin Ratio 1.4 (1.0-2.8); Alkaline Phosphatase 62 U/L (38-126); Aspartate Aminotransferase 26 IU/L (14-36); BUN Creatinine Ratio 21.5 (6-22); Bilirubin Total 0.5 mg/dL (0.2-1.3); Blood Urea Nitrogen 23 mg/dL (7-17); Calcium 9.1 mg/dL (8.4-10.2); Carbon Dioxide 30 mmol/L (22-32); Chloride 104 mmol/L (98-107); Cholesterol 139 mg/dL (140-199); Estimated Glomerular Filt Rate 57 mL/min (>60); Globulin 2.7 g/dL (1.7-4.1); Glucose 93 mg/dL (80-110); HDL Cholesterol 54 mg/dL (40-60); HEMOLYSIS < 15 (0-50); LDL Cholesterol Calculated 66 mg/dL (<100); Potassium 4.4 mmol/L (3.4-5.1); Sodium 137 mmol/L (137-145); Total Protein 6.6 g/dL (6.3-8.2); Triglycerides 95 mg/dL (35-150)
[2023-04-24 08:54] LABS: Erythrocyte Sedimentation Rate 6 MM/HR (0-20)
[2023-04-24 08:57] LABS: Appearance Urine UA CLEAR; Bilirubin Urine UA NEGATIVE (NEGATIVE); Color Urine UA YELLOW; Glucose Urine UA NEGATIVE (Negative); Ketones Urine UA NEGATIVE (NEGATIVE); Leukocyte Esterase Urine UA TRACE (NEGATIVE); Nitrite Urine UA NEGATIVE (Negative); Occult Blood Urine UA 1+ (Negative); Protein Urine UA NEGATIVE (Negative); Urobilinogen Urine UA 0.2 E.U./dL (0.2)
[2023-04-24 09:01] LABS: pH Urine UA 7.5 (4.5-8.0)
[2023-04-24 09:04] LABS: Bacteria Urine Occasional (0-1); RBC Urine 1-5/HPF (0-5/HPF); Squamous Epithelial Cell Urine 1-5 /HPF (0-5/HPF); WBC Urine 5-10/HPF (0-5/HPF)
[2023-04-24 09:05] LABS: Amorphous Sediment Urine 1+; Culture Indicated Urine Specimen Cultured; Mucus Urine 1+ (Negative)
[2023-04-24 09:09] LABS: TSH w/ Reflex to FT4 1.47 uIU/mL (0.47-4.68)
[2023-04-24 17:31] LABS: Hep C Virus Ab w/Reflex Quant NEGATIVE s/c (NEGATIVE)
== END ==
PROVIDERS: PCP Internal Medicine; Referring Provider Pediatrics; Visit Provider Pediatrics
DX: Z00.00 Encounter for general adult medical examination without abnormal findings (principal); E03.9 Hypothyroidism, unspecified; I10 Essential (primary) hypertension; I49.9 Cardiac arrhythmia, unspecified; K21.9 Gastro-esophageal reflux disease without esophagitis; R00.2 Palpitations; L57.0 Actinic keratosis
CPT/HCPCS: 36415; 80053; 80061; 81001; 84443; 85025; 85651; 86803; 87086

== ENCOUNTER → 2023-05-15 10:56 | Outpatient (CLI) | payer MEDICARE, OTHER, SELFPAY ==
[2021-03-03 18:35] VITALS: BMI 29.4
--- NOTE | 2023-05-15 10:58 | DI.RAD.S_ITS ---
PROCEDURE: XR FINGER LT MIN 2V INDICATIONS: Left ring finger injury TECHNIQUE: AP hand, 2 views of the 4th finger(s) acquired. COMPARISON: None. FINDINGS: Bones: No fractures or dislocations. No suspicious bony lesions. Osteoarthritic changes throughout the interphalangeal joints, 1st CMC and MCP joints. This is most pronounced at the 1st CMC and 2nd DIP. Soft tissues: No suspicious soft tissue calcifications. IMPRESSION: No acute fracture or dislocation. Osteoarthritic changes of the hand. Dictated by: Kyree Alba M.D. on 05/15/2023 at 11:11 Approved by: Kyree Alba M.D. on 05/15/2023 at 11:14
== END ==
PROVIDERS: PCP Internal Medicine; Referring Provider Physician Assistant; Visit Provider Physician Assistant
DX: S69.92XA Unspecified injury of left wrist, hand and finger(s), initial encounter (principal); X58.XXXA Exposure to other specified factors, initial encounter
CPT/HCPCS: 73140

== ENCOUNTER → 2024-04-26 11:27 | Outpatient (CLI) | payer MEDICARE, OTHER, SELFPAY ==
[2021-03-03 18:35] VITALS: BMI 29.4
[2024-04-26 12:26] LABS: Hematocrit 39.9 % (36-46); Hemoglobin 13.4 g/dL (12.0-16.0); Mean Corpuscular HGB Conc 33.4 % (30-36); Mean Corpuscular Hemoglobin 29.4 PG (26-34); Mean Corpuscular Volume 87.8 fL (80-100); Platelet Count 178 X10^3/uL (150-400); Red Blood Cell Count 4.55 X10^6/uL (4.0-5.2)
[2024-04-26 12:50] LABS: Alanine Aminotransferase 17 IU/L (<35); Albumin 4.1 g/dL (3.5-5.0); Albumin Globulin Ratio 1.5 (1.0-2.8); Alkaline Phosphatase 66 U/L (38-126); Aspartate Aminotransferase 23 IU/L (14-36); Bilirubin Total 0.5 mg/dL (0.2-1.3); Blood Urea Nitrogen 23 mg/dL (7-17); Calcium 9.6 mg/dL (8.4-10.2); Carbon Dioxide 26 mmol/L (22-32); Chloride 107 mmol/L (98-107); Estimated Glomerular Filt Rate 52 mL/min (>60); Globulin 2.7 g/dL (1.7-4.1); Glucose 88 mg/dL (80-110); HEMOLYSIS < 15 (0-50); Magnesium 2.1 mg/dL (1.6-2.3); Potassium 4.5 mmol/L (3.4-5.1); Sodium 140 mmol/L (137-145); Total Protein 6.8 g/dL (6.3-8.2)
[2024-04-26 13:24] LABS: TSH w/ Reflex to FT4 0.37 uIU/mL (0.47-4.68)
[2024-04-26 14:27] LABS: Free T4, Direct Thyroxine 1.32 ng/dL (0.78-2.19)
== END ==
PROVIDERS: PCP Internal Medicine; Referring Provider Internal Medicine; Visit Provider Internal Medicine
DX: E03.9 Hypothyroidism, unspecified (principal); N18.31 Chronic kidney disease, stage 3a; E78.2 Mixed hyperlipidemia; E61.2 Magnesium deficiency
CPT/HCPCS: 36415; 80053; 83735; 84439; 84443; 85027

== ENCOUNTER → 2024-05-28 10:50 | Outpatient (CLI) | payer MEDICARE, OTHER, SELFPAY ==
[2021-03-03 18:35] VITALS: BMI 29.4
--- NOTE | 2024-05-28 10:52 | DI.MG.S_ITS ---
BILATERAL DIGITAL SCREENING MAMMOGRAM 3D/2D WITH CAD: 05/28/2024 CLINICAL: Routine screening. Family history of breast cancer. Comparison is made to exams dated: 03/24/2023 mammogram, 01/21/2022 mammogram, and 11/27/2020 mammogram - [facility]. The breasts are almost entirely fatty (category a/<25% glandular tissue). Current study was also evaluated with a Computer Aided Detection (CAD) system. There are benign calcifications in both breasts. No significant masses, calcifications, or other findings are seen in either breast. There has been no significant interval change. IMPRESSION: BENIGN There is no mammographic evidence of malignancy. A 1 year screening mammogram is recommended. Based on the Tyrer Cuzick model (a risk assessment model) the patient's lifetime risk is 4.4% and her 10 year risk is 2.3%. According to the ACR, ACS, and NCCN guidelines, an annual breast MRI exam along with mammogram is recommended if the patient's lifetime risk is 20% or greater. This exam was interpreted at Station ID: [id number]. NOTE: For mammograms, a report in lay terms will be sent to the patient. Approximately 15% of breast malignancies will not be visualized mammographically. In the management of a palpable breast mass, a negative mammogram must not discourage biopsy of a clinically suspicious lesion. Electronically Signed By: Linda [email or web address]:05/28/2024 16:33:08 letter sent: Normal Exam ACR BI-RADS Category 2: Benign [id number]
== END ==
PROVIDERS: PCP Internal Medicine; Referring Provider Internal Medicine; Visit Provider Internal Medicine
DX: Z12.31 Encounter for screening mammogram for malignant neoplasm of breast (principal); Z80.3 Family history of malignant neoplasm of breast; R92.313 Mammographic fatty tissue density, bilateral breasts
CPT/HCPCS: 77063; 77067

== ENCOUNTER → 2024-07-30 08:27 | Outpatient (CLI) | payer MEDICARE, OTHER, SELFPAY ==
[2021-03-03 18:35] VITALS: BMI 29.4
[2024-07-30 10:38] LABS: TSH w/ Reflex to FT4 1.01 uIU/mL (0.47-4.68)
== END ==
PROVIDERS: PCP Internal Medicine; Referring Provider Internal Medicine; Visit Provider Internal Medicine
DX: E03.9 Hypothyroidism, unspecified (principal)
CPT/HCPCS: 36415; 84443

== ENCOUNTER → 2025-06-05 14:34 | Outpatient (CLI) | payer MEDICARE, OTHER, SELFPAY ==
[2021-03-03 18:35] VITALS: BMI 29.4
--- NOTE | 2025-06-05 14:37 | DI.MG.S_ITS ---
MM screening mammo BI: 06/05/2025. BI-RADS: 1 CLINICAL: 70-year old female for bilateral screening mammogram. Tyrer-Cuzick lifetime risk of 6.9%. No personal or first-degree family history of breast cancer. Current reported family history of breast cancer: maternal aunt's daughter and second maternal aunt's daughter. The patient is status-post reduction mammoplasty. PRIOR EXAMS 05/28/2024, 03/24/2023, 01/21/2022, 11/27/2020, MAMMOGRAPHY TECHNIQUE: 2D and 3D (tomosynthesis) digital mammographic views obtained, with additional images as needed for full coverage. Current study was also evaluated with a Computer Aided Detection (CAD) system. DENSITY B. There are scattered areas of fibroglandular density. MAMMOGRAPHY FINDINGS Bilateral: No suspicious mass, asymmetry, microcalcification, or other abnormality seen. IMPRESSION: * No evidence of malignancy. RECOMMENDATIONS Bilateral * Annual screening mammography. OVERALL ASSESSMENT CATEGORY BI-RADS-1: Negative. The [employer] recommends annual screening mammography beginning at age 40 for women with average risk of breast cancer. ELECTRONICALLY SIGNED: Nahomy Myers M.D. on 06/07/2025 at 03:29:52 PM PT Interpreting Station ID: [id number]
== END ==
PROVIDERS: PCP Internal Medicine; Referring Provider Internal Medicine; Visit Provider Internal Medicine
DX: Z12.31 Encounter for screening mammogram for malignant neoplasm of breast (principal); Z80.3 Family history of malignant neoplasm of breast
CPT/HCPCS: 77063; 77067

== ENCOUNTER 2025-07-15 15:15 | Outpatient (RCR) | payer MEDICARE, OTHER, SELFPAY ==
[2021-03-03 18:35] VITALS: BMI 29.4
--- NOTE | 2025-05-06 10:20 | PT.OIE ---
Current Diagnoses Sciatica, unspecified side (05/06/25) Dorsalgia, unspecified (05/06/25) Myalgia, other site (05/06/25) Past Medical History (Last Reviewed 01/16/25 @ 10:10 by Akbar Delacruz MD) Acquired hypothyroidism Asthma, mild intermittent Cervical stenosis (uterine cervix) Colon polyps (03/01/16) Diverticulosis of intestine (01/10/13) Endocervical polyp (03/24/06) Essential hypertension (05/12/11) Gall bladder polyp GERD without esophagitis Hayfever History of colonic polyps Left ankle pain Migraine headache Migraine without aura and without status migrainosus, not intractable Mixed hyperlipidemia Nephrolithiasis (12/06/02) Obesity (BMI 30.0-34.9) Obstructive sleep apnea syndrome (05/01/14) Osteopenia (12/27/16) Palpitations Primary osteoarthritis involving multiple joints Stage 3a chronic kidney disease (CKD) Thyroid nodule (2008) Transection of common bile duct Urinary incontinence Past Surgical History (Last Reviewed 01/16/25 @ 10:10 by Akbar Delacruz MD) History of colonoscopy (01/30/09) History of colonoscopy (02/2021) History of colonoscopy with polypectomy (03/01/16) History of colonoscopy with polypectomy (01/07/13) History of esophagogastroduodenoscopy (EGD) (02/2021) History of foot surgery History of lumpectomy (1983) S/P cholecystectomy Status post breast biopsy (1989) Status post rotator cuff repair (07/2016) Visit Care Team Role Provider Type Akbar Delacruz MD Attending Provider Physician Family Provider Primary Care Provider Referring Provider Specialty: Internal Medicine Address: [address] [place] [address], [facility] Email: [email or web address] Physical Therapy Initial Evaluation PT OP: Lower Back/Lower Extremity Start: 05/06/25 08:02 Freq: Status: Active Protocol: Document 05/06/25 08:02 [facility] (Rec: 05/06/25 10:20 [facility] [id number]) Out-Patient Physical Therapy Visit Information Visit Information Visit Type Initial Evaluation Visit Start Time 09:03 Visit Stop Time 09:48 Visit Number 1 Number of MILK PICKUP DRIVER Visits 0 Progress Note Due 06/05/25 Current Condition History of Current Condition Onset Date December 2024 Current Complaints R>L LS, R buttocks, R post thigh History of Current Pt reports was cleaning up brush etc outside and it Condition hurt during and it felt ok after. then 2 weeks it flared up. She has been fighting it for months. She has taken 2 steroid packs that helped only briefly. 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 THe pain has flipped back and forth from R to L of back. Trying not to avoid things. Dragon boating feels better. If wears belt goes 1.5 miles but used to walk 3 miles w/o pain. More she does more it goes into R buttocks and thigh Aggravates: yard work, walking w/o SI belt, housework. 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 relief: dragon boating, ice, massage machine, heat Treatment Goals Patient/Caregiver back to 3 mile walks, yard work etc w/o pain Goals Patient Questionnaires Lower Extremity Functional Scale LEFS Score 28% with SI belt Balance Tests Single Limb Standing Single Limb- Right >30 sec Single Limb- Left >30 sec Manual Assessments Soft Tissue Assessment Soft Tissue Mobility tightness: B paraspinals, QL, glutes Assessment tenderness: L4, 5, R SI OP Gait Assessment Comments Gait Comments WBOS w/walking, rotation L only, toes out, dec push off Posture Evaluation Lucia Postural Classification System Lucia Postural Posterior/Anterior Classifications Vertical Compression 2 Test Elbow Flexion Test 1 Lumbar Protective 1 Mechanism Left AP Lumbar Protective 1 Mechanism Right AP Lumbar Protective 3 Mechanism Left PA Lumbar Protective 3 Mechanism Right PA Comments Posture Comments supination of L foot>R , L knee slightly flexed, kyphosis, fwd head, L SB and rot trunk, R iliac crest higher, equal greater trochanters. Lumbar Spine Range of Motion Lumbar Spine Active Percentage Flexion 25 Extension 25 Rotation Left 40 Rotation Right 60 Lateral Flexion Left 60 Lateral Flexion 60 Right ROM Limitations Pain Comments w/pelvis blocked to mid thigh, to floor w/o Special Tests Lumbar Spine Special Tests Akira Comments mild hip flexor tightness L SLR Test Results positive R Slump Test Results positive R Hip Strength Hip Manual Muscle Testing Right Flexion (L2) 3+ Fair+ Extension (S1) 3 Fair Abduction 3 Fair Adduction 3+ Fair+ External Rotation 4- Good- Internal Rotation 5 Normal Comments pain hip abd Left Flexion (L2) 5 Normal Extension (S1) 3 Fair Abduction 3+ Fair+ Adduction 4- Good- External Rotation 4 Good Internal Rotation 5 Normal Knee Strength Knee Manual Muscle Testing Right Flexion (S2) 5 Normal Extension (L3) 5 Normal Left Flexion (S2) 5 Normal Extension (L3) 5 Normal Ankle/Foot Strength Ankle and Foot Manual Muscle Testing Right Dorsiflexion (L4) 5 Normal Plantarflexion (S1) 5 Normal Left Dorsiflexion (L4) 5 Normal Plantarflexion (S1) 5 Normal Comments 20 heel raises B Therapeutic Exercises Other Exercises ed pose Side bilateral Reps/Minutes 1 min Manual Therapy Treatment Consent Patient gave verbal Yes consent for manual treatment Soft Tissue Mobilization glutes Body Location R Mobilization Type Rolling,Sustained Pressure Intensity/Depth Moderate Body Position Prone LB Body Location cupping around R SI Body Position Prone Joint Mobilizations innominate Body Position Prone Comments caudal R-pain so stopped sacrum Body Position Prone Comments caudal and R UPA w/LTR Physical Therapy Assessment Rehab Potential Rehabilitation Good Potential Evaluation Complexity Number of Personal 3 or More Factors/ Comorbidities Number of Body 4 or More Systems Impaired Clinical Evolving Presentation at Evaluation Impairments Impairments Activity Tolerance,Balance,Functional Activities, Functional Mobility,Gait,Pain,Posture,ROM,Soft Tissue Mobility,Strength Goals walking Consumer Marketing Specialist Goal (LTG) Pt will report being able to return to >2 mile walks w/ o need for SI belt w/o pain greater than 1/10 LTG Duration 08/04 activities Care Home Goal (LTG) Pt will report able to do all household and yard work activities w/o inc pain LTG Duration 08/04 strength Short Term Goal (STG Pt will demonstrate independence w/HEP by being able to ) perform with no more than min cues. STG Duration 06/07 Consumer Marketing Specialist Goal (LTG) Pt will score at least 4+/5 on all B hip MMT and at least 3/5 LPM to show improved strength to allow pt to do typical household activities w/o pain LTG Duration 08/04 Assessment Summary Assessment Pt presents w/R>L LS pain w/R buttocks and HS pain w/ positive neural tension testing, postural changes, gait changes, weakness in hips and core, and dec spinal motion. 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 She would benefit from skilled PT to address these deficits and return her to typical active lifestyle w/o pain. Physical Therapy Plan Frequency and Duration Frequency of 2x/Week Treatment Duration of 12 treatment (weeks) Plan of Care Start 05/06/25 Date Plan of Care End 08/04/25 Date Therapeutic Interventions Therapeutic Balance Training,Gait Training,Home Exercise Program, Interventions Joint Mobilizations,Manual Therapy,Neuromuscular Re- education,Patient/Caregiver Education,Self-Care/Home Management,Taping,Therapeutic Activities,Therapeutic Exercises Modalities Cold Pack/Ice Massage,Electric Stimulation,Hot Packs, Infrared Therapy,Traction- Mechanical,Ultrasound Next Visit Focus/Plan Next Note Type Treatment Note Next Visit Plan add: open book, sidesteps, sit to stand/squat, hip flex isometric, bridge, clamshell, manual to pelvis, hip, HS, Lower lumbar
--- NOTE | 2025-05-08 09:52 | PT.OTN ---
Current Diagnoses Sciatica, unspecified side (05/08/25) Dorsalgia, unspecified (05/08/25) Myalgia, other site (05/08/25) Physical Therapy Treatment Note PT OP: Lower Back/Lower Extremity Start: 05/06/25 08:02 Freq: Status: Active Protocol: Document 05/08/25 08:07 [facility] (Rec: 05/08/25 09:52 [facility] [id number]) Out-Patient Physical Therapy Visit Information Visit Information Visit Type Treatment Note Visit Start Time 09:05 Visit Stop Time 09:45 Visit Number 2 Number of BLASTING GANG MINER Visits 0 Progress Note Due 06/05/25 OP-PT Subjective Patient Comments Patient Comments Pt felt ok after last session Therapeutic Exercises Supine Exercises bridge Side bilateral Reps/Minutes 15 Comments cues segmental lift and glute engagement-PT facilitation thru LEs isometric Supine Exercise Name DL isometric Side bilateral Reps/Minutes 30 sec Comments cues set up and DF Sidelying Exercises open book Side bilateral Reps/Minutes 10 Comments cues no knee lifting ;focus on thoracic rotation clamshell Side bilateral Equipment Used L2 Reps/Minutes 10 Comments cues no trunk rotation Standing Exercises sidesteps Side bilateral Equipment Used L2 Reps/Minutes 2x10ft ea Comments cues core, no lat lean squat Side bilateral Reps/Minutes 2x10 Comments cues buttocks back and knees over toes Other Exercises ed pose Side bilateral Reps/Minutes 1 min Manual Therapy Treatment Consent Patient gave verbal Yes consent for manual treatment Soft Tissue Mobilization glutes Body Location R Mobilization Type Rolling,Sustained Pressure Intensity/Depth Moderate Body Position Prone LB Body Location cupping around R SI and ES and QL rolling R Body Position Prone Joint Mobilizations hip Comments R add c/r, free the ball IR c/r, inf glide c/r Physical Therapy Assessment Goals walking Fdc Goal (LTG) Pt will report being able to return to >2 mile walks w/ o need for SI belt w/o pain greater than 1/10 LTG Duration 08/04 activities Bezel Cutter Goal (LTG) Pt will report able to do all household and yard work activities w/o inc pain LTG Duration 08/04 strength Short Term Goal (STG Pt will demonstrate independence w/HEP by being able to ) perform with no more than min cues. STG Duration 06/07 Fdc Goal (LTG) Pt will score at least 4+/5 on all B hip MMT and at least 3/5 LPM to show improved strength to allow pt to do typical household activities w/o pain LTG Duration 08/04 Assessment Summary Assessment Pt did well with exercises w/o inc pain with cues. She did well with manual with much improved hip ROM Physical Therapy Plan Frequency and Duration Frequency of 2x/Week Treatment Duration of 12 treatment (weeks) Plan of Care Start 05/06/25 Date Plan of Care End 08/04/25 Date Next Visit Focus/Plan Next Note Type Treatment Note Next Visit Plan review exercises: open book, sidesteps, sit to stand/ squat, hip flex isometric, bridge, clamshell, manual to pelvis, hip, HS, Lower lumbar
--- NOTE | 2025-05-13 09:53 | PT.OTN ---
Current Diagnoses Sciatica, unspecified side (05/13/25) Dorsalgia, unspecified (05/13/25) Myalgia, other site (05/13/25) Physical Therapy Treatment Note PT OP: Lower Back/Lower Extremity Start: 05/06/25 08:02 Freq: Status: Active Protocol: Document 05/13/25 07:50 [facility] (Rec: 05/13/25 09:53 [facility] [id number]) Out-Patient Physical Therapy Visit Information Visit Information Visit Type Treatment Note Visit Start Time 09:08 Visit Stop Time 09:48 Visit Number 3 Number of PHOTOCOPYING EQUIPMENT REPAIRER Visits 0 Progress Note Due 06/05/25 OP-PT Subjective Patient Comments Patient Comments Pt reports felt sore after last session but better Therapeutic Exercises Supine Exercises bridge Side bilateral Equipment Used L2 band at hips Reps/Minutes 5 sec x8 Comments cues breathing and hold isometric Supine Exercise Name DL isometric Side bilateral Reps/Minutes 30 sec Comments cues breathing and knees past hips Sidelying Exercises open book Side bilateral Reps/Minutes 10 Comments cues focus on thoracic rotation clamshell Side bilateral Equipment Used L2 Reps/Minutes 15 Comments cues no trunk rotation Standing Exercises sidesteps Side bilateral Equipment Used L2 Reps/Minutes 15ft ea Comments cues toes fwd squat Side bilateral Reps/Minutes 15 Comments cues feet hip width apart Manual Therapy Treatment Consent Patient gave verbal Yes consent for manual treatment Soft Tissue Mobilization HS Body Location R proximal Mobilization Type Rolling Intensity/Depth Moderate Body Position Hooklying Comments w/active HS stretch ITB Body Location R Intensity/Depth Moderate Body Position Hooklying Comments w/hip IR and add-manual rolling and cupping glutes Body Location R lat glutes w/IR Mobilization Type Rolling,Sustained Pressure Intensity/Depth Moderate Body Position Hooklying Joint Mobilizations hip Comments R IR free the ball c/r and supine inf glide c/r and inf med abd glide c/r innominate Comments R flex and abd c/r Physical Therapy Assessment Goals walking Assisted Goal (LTG) Pt will report being able to return to >2 mile walks w/ o need for SI belt w/o pain greater than 1/10 LTG Duration 08/04 activities Assisted Goal (LTG) Pt will report able to do all household and yard work activities w/o inc pain LTG Duration 08/04 strength Short Term Goal (STG Pt will demonstrate independence w/HEP by being able to ) perform with no more than min cues. STG Duration 06/07 Assisted Goal (LTG) Pt will score at least 4+/5 on all B hip MMT and at least 3/5 LPM to show improved strength to allow pt to do typical household activities w/o pain LTG Duration 08/04 Assessment Summary Assessment Less cues w/exercises now but still some needed for proper form. no back pain noted though. Improved R hip flex, IR and add after manual. Physical Therapy Plan Frequency and Duration Frequency of 2x/Week Treatment Duration of 12 treatment (weeks) Plan of Care Start 05/06/25 Date Plan of Care End 08/04/25 Date Next Visit Focus/Plan Next Note Type Treatment Note Next Visit Plan review and advance exercises, manual to hips, LS, pelvis
--- NOTE | 2025-05-15 12:29 | PT.OTN ---
Current Diagnoses Sciatica, unspecified side (05/15/25) Dorsalgia, unspecified (05/15/25) Myalgia, other site (05/15/25) Physical Therapy Treatment Note PT OP: Lower Back/Lower Extremity Start: 05/06/25 08:02 Freq: Status: Active Protocol: Document 05/15/25 10:49 [facility] (Rec: 05/15/25 11:53 [facility] [id number]) Out-Patient Physical Therapy Visit Information Visit Information Visit Type Treatment Note Visit Note [id number] Medbridge code Visit Start Time 10:49 Visit Stop Time 11:31 Visit Number 4 Number of PULLING UNIT FLOORHAND Visits 1 Progress Note Due 06/05/25 OP-PT Subjective Patient Comments Patient Comments Patient reports she is better. Patient reports pain increases when she tries to do anything, walking increases pain. Patient reports she can sleep now. Therapeutic Exercises Supine Exercises piriformis stretch Supine Exercise Name HEP Side bilateral Reps/Minutes 60 sec each LE Comments verbal and tactile cues Mod ivett stretch Supine Exercise Name HEP Side bilateral Reps/Minutes one min with AROM knee flexion post X 1 each LE Comments verbal cues bridge Side bilateral Equipment Used L3 band at hips #3 band for home/HEP Reps/Minutes 5 sec x8 Comments cues breathing and hold, vc to lift to a height that does not inc pain Sidelying Exercises reverse clamshell Side bilateral Reps/Minutes X 10 Comments verbal cues Standing Exercises prone hip ext Standing Exercise upper body resting on raised mat HEP Name Side bilateral Reps/Minutes X10 Comments verbal cues, monitored for pain Manual Therapy Treatment Consent Patient gave verbal Yes consent for manual treatment Soft Tissue Mobilization illiopsoas Body Location B Mobilization Type Cross-Friction,Rolling Intensity/Depth Moderate Body Position Hooklying glutes Comments glute/piriformis B rolling cross friction Moderate sidelying Physical Therapy Assessment Goals walking Revenue Specialist Goal (LTG) Pt will report being able to return to >2 mile walks w/ o need for SI belt w/o pain greater than 1/10 LTG Duration 08/04 activities Revenue Specialist Goal (LTG) Pt will report able to do all household and yard work activities w/o inc pain LTG Duration 08/04 strength Short Term Goal (STG Pt will demonstrate independence w/HEP by being able to ) perform with no more than min cues. STG Duration 06/07 Longterm Goal (LTG) Pt will score at least 4+/5 on all B hip MMT and at least 3/5 LPM to show improved strength to allow pt to do typical household activities w/o pain LTG Duration 08/04 Assessment Summary Assessment Patient reports she cannot tell if she is better or not end of session. HEP updated with stretches for piriformis and illiopsoas and AROM hip ext and IR, also progressed band for bridge exercise. Physical Therapy Plan Frequency and Duration Frequency of 2x/Week Treatment Duration of 12 treatment (weeks) Plan of Care Start 05/06/25 Date Plan of Care End 08/04/25 Date Next Visit Focus/Plan Next Note Type Treatment Note Next Visit Plan review and advance exercises, manual to hips, LS, pelvis
--- NOTE | 2025-05-27 16:12 | PT.OTN ---
Current Diagnoses Sciatica, unspecified side (05/27/25) Dorsalgia, unspecified (05/27/25) Myalgia, other site (05/27/25) Physical Therapy Treatment Note PT OP: Lower Back/Lower Extremity Start: 05/06/25 08:02 Freq: Status: Active Protocol: Document 05/27/25 15:22 [facility] (Rec: 05/27/25 16:12 [facility] [id number]) Out-Patient Physical Therapy Visit Information Visit Information Visit Type Treatment Note Visit Note Visit [email or web address]: [email or web address] Visit Start Time 15:22 Visit Stop Time 16:06 Visit Number 5 Number of EXPLOSIVE OPERATOR SUPERVISOR Visits 2 Progress Note Due 06/05/25 OP-PT Subjective Patient Comments Patient Comments Patient reports she is better, buttocks and low back pain 3/10 persists, but the pain down back of LE is gone. Patient reports she is mormonism about her exercises. Therapeutic Exercises Supine Exercises piriformis stretch Supine Exercise Name HEP Side bilateral Reps/Minutes 60 sec each LE Comments verbal and tactile cues Mod ivett stretch Supine Exercise Name HEP Side bilateral Reps/Minutes one min with AROM knee flexion post X 2 each LE Comments verbal cues Standing Exercises squat Standing Exercise sit to stand with band HEP Name Side bilateral Resistance level 3 band Reps/Minutes X 3 then 2X 10 Comments X 3 hip hinge training and mech sit to stand Manual Therapy Treatment Consent Patient gave verbal Yes consent for manual treatment Soft Tissue Mobilization illiopsoas Body Location B Mobilization Type Cross-Friction,Rolling Intensity/Depth Moderate Body Position Hooklying glutes Comments glute/piriformis B rolling cross friction Moderate sidelying Manual Techniques contract relax piriformis stretch Type right Reps/Duration X 1 with 60 sec hold R AI L PI Type MET for R AI L PI and pubic shotgun Reps/Duration 6 X 6 sec each Physical Therapy Assessment Goals walking Fci Goal (LTG) Pt will report being able to return to >2 mile walks w/ o need for SI belt w/o pain greater than 1/10 LTG Duration 08/04 activities Fci Goal (LTG) Pt will report able to do all household and yard work activities w/o inc pain LTG Duration 08/04 strength Short Term Goal (STG Pt will demonstrate independence w/HEP by being able to ) perform with no more than min cues. STG Duration 06/07 Fci Goal (LTG) Pt will score at least 4+/5 on all B hip MMT and at least 3/5 LPM to show improved strength to allow pt to do typical household activities w/o pain LTG Duration 08/04 Assessment Summary Assessment Patient reports no pain with sit to stand when performing hip hinge. Patient into session with reports of LE only to buttocks R LE no longer down back of LE. Physical Therapy Plan Frequency and Duration Frequency of 2x/Week Treatment Duration of 12 treatment (weeks) Plan of Care Start 05/06/25 Date Plan of Care End 08/04/25 Date Next Visit Focus/Plan Next Note Type Treatment Note Next Visit Plan review and advance exercises, manual to hips, LS, pelvis
--- NOTE | 2025-05-30 17:18 | PT.OTN ---
Current Diagnoses Sciatica, unspecified side (05/30/25) Dorsalgia, unspecified (05/30/25) Myalgia, other site (05/30/25) Physical Therapy Treatment Note PT OP: Lower Back/Lower Extremity Start: 05/06/25 08:02 Freq: Status: Active Protocol: Document 05/30/25 16:16 AB (Rec: 05/30/25 17:17 AB [id number]) Out-Patient Physical Therapy Visit Information Visit Information Visit Type Treatment Note Visit Note [id number] Medbridge code Visit Start Time 16:17 Visit Stop Time 16:09 Visit Number 6 Number of BORING MACHINE OPERATOR Visits 3 Progress Note Due 06/05/25 OP-PT Subjective Patient Comments Patient Comments Patient rates pain at 2/10 R buttocks. Patient reports she is getting better, but has pain when gardening, and walking, a little bit. Therapeutic Exercises Supine Exercises breathing from diaphragm Supine Exercise Name in mod restorative poseHEP Reps/Minutes 3 min Comments verbal and tactile cues piriformis stretch Supine Exercise Name HEP Side bilateral Reps/Minutes 60 sec each LE Comments verbal and tactile cues Mod ivett stretch Supine Exercise Name HEP Side bilateral Reps/Minutes one min with AROM knee flexion post X 2 each LE Comments verbal cues bridge Side bilateral Equipment Used L3 band at hips #3 band for home/HEP Reps/Minutes X15 Comments REview of segmental bridge Sidelying Exercises reverse clamshell Side bilateral Reps/Minutes X 10 Comments verbal cues Standing Exercises Pallof Press Side bilateral Resistance [place] green band then level 4 royal blue Reps/Minutes X10 level 3, X 15 level 4 to HEP Comments verbal and visual cues Manual Therapy Treatment Soft Tissue Mobilization illiopsoas Body Location B Mobilization Type Cross-Friction,Rolling Intensity/Depth Moderate Body Position Hooklying glutes Comments glute/piriformis B rolling cross friction Moderate sidelying Manual Techniques R AI L PI Type MET for R AI L PI and pubic shotgun Reps/Duration 6 X 6 sec each Physical Therapy Assessment Goals walking Fdc Goal (LTG) Pt will report being able to return to >2 mile walks w/ o need for SI belt w/o pain greater than 1/10 LTG Duration 08/04 activities Fdc Goal (LTG) Pt will report able to do all household and yard work activities w/o inc pain LTG Duration 08/04 strength Short Term Goal (STG Pt will demonstrate independence w/HEP by being able to ) perform with no more than min cues. STG Duration 06/07 Fdc Goal (LTG) Pt will score at least 4+/5 on all B hip MMT and at least 3/5 LPM to show improved strength to allow pt to do typical household activities w/o pain LTG Duration 08/04 Assessment Summary Assessment Patient rates R glute back pain 2/10 end of session. Good sujey to Pallof press, added to HEP. Physical Therapy Plan Frequency and Duration Frequency of 2x/Week Treatment Duration of 12 treatment (weeks) Plan of Care Start 05/06/25 Date Plan of Care End 08/04/25 Date Next Visit Focus/Plan Next Note Type Treatment Note Next Visit Plan review and advance exercises, manual to hips, LS, pelvis, Possibly trial of kinesiotaping.
--- NOTE | 2025-06-04 16:15 | PT.OTN ---
Current Diagnoses Sciatica, unspecified side (06/04/25) Dorsalgia, unspecified (06/04/25) Myalgia, other site (06/04/25) Physical Therapy Treatment Note PT OP: Lower Back/Lower Extremity Start: 05/06/25 08:02 Freq: Status: Active Protocol: Document 06/04/25 13:38 AB (Rec: 06/04/25 14:34 AB [id number]) Out-Patient Physical Therapy Visit Information Visit Information Visit Type Treatment Note Visit Note [id number] Medbridge code Visit Start Time 13:49 Visit Stop Time 14:34 Visit Number 7 Number of READING RECOVERY TEACHER Visits 4 Progress Note Due 06/05/25 OP-PT Subjective Patient Comments Patient Comments Patient reports she slept good last night, and was on the boat yesterday. Patient rates pain 0/10 start of session. Therapeutic Exercises Sidelying Exercises side plank Side bilateral Reps/Minutes 7 sec X 3 each side Comments verbal and visual cues reverse clamshell Side bilateral Resistance Level one band Reps/Minutes X 15 Comments verbal cues clamshell Side bilateral Equipment Used L2 Reps/Minutes 15 Comments cues no trunk rotation Standing Exercises glute med isometric Reps/Minutes one minute each side Gait Training Gait Activity without device Comments Pace is 134 steps a minute Metronome walking at 120 with reports of dec pain ~ loop through gym and hallway ~140 feet Manual Therapy Treatment Taping kinesio lower thoracic to SI Comments I strip lower thoracic to SI then 1 I strips across lower SI horizontally Patient ed to remove in 3-5 days or immediately if having pain, itching, burning any discomfort. Manual Techniques contract relax piriformis stretch Type right Reps/Duration X2 with 60 sec hold R AI L PI Type MET for R AI L PI and pubic shotgun Reps/Duration 6 X 6 sec each Physical Therapy Assessment Goals walking Retirement Goal (LTG) Pt will report being able to return to >2 mile walks w/ o need for SI belt w/o pain greater than 1/10 LTG Duration 08/04 activities Retirement Goal (LTG) Pt will report able to do all household and yard work activities w/o inc pain LTG Duration 08/04 strength Short Term Goal (STG Pt will demonstrate independence w/HEP by being able to ) perform with no more than min cues. STG Duration 06/07 Retirement Goal (LTG) Pt will score at least 4+/5 on all B hip MMT and at least 3/5 LPM to show improved strength to allow pt to do typical household activities w/o pain LTG Duration 08/04 Assessment Summary Assessment Tyrel rates glute pain 2/10 end of session, reports symptoms increasing post stretching and strengthening, decreased with tape, glute med activation and decreasing pace with ambulation. Physical Therapy Plan Frequency and Duration Frequency of 2x/Week Treatment Duration of 12 treatment (weeks) Plan of Care Start 05/06/25 Date Plan of Care End 08/04/25 Date Next Visit Focus/Plan Next Note Type Progress Note Next Visit Plan review and advance exercises, manual to hips, LS, pelvis, Possibly trial of kinesiotaping.
--- NOTE | 2025-06-06 17:38 | PT.OTN ---
Current Diagnoses Sciatica, unspecified side (06/06/25) Dorsalgia, unspecified (06/06/25) Myalgia, other site (06/06/25) Physical Therapy Treatment Note PT OP: Lower Back/Lower Extremity Start: 05/06/25 08:02 Freq: Status: Active Protocol: Document 06/06/25 13:37 AB (Rec: 06/06/25 14:18 AB [id number]) Out-Patient Physical Therapy Visit Information Visit Information Visit Type Treatment Note Visit Note [id number] Medbridge code Visit Start Time 13:51 Visit Stop Time 14:32 Visit Number 8 Number of MATHEMATICS FACULTY MEMBER Visits 5 Progress Note Due 07/06/25 OP-PT Subjective Patient Comments Patient Comments Patient rates pain 3/10 start of session comments the hip has been hurting all day. Hip Strength Hip Manual Muscle Testing Right Flexion (L2) 4- Good- Extension (S1) 3+ Fair+ Abduction 3 Fair Adduction 3+ Fair+ External Rotation 4- Good- Internal Rotation 5 Normal Left Flexion (L2) 5 Normal Extension (S1) 3+ Fair+ Abduction 4+ Good+ Adduction 4+ Good+ External Rotation 4+ Good+ Internal Rotation 5 Normal Therapeutic Exercises Supine Exercises piriformis stretch Supine Exercise Name HEP Side right Reps/Minutes 60 sec each LE Comments verbal and tactile cues Mod ivett stretch Supine Exercise Name HEP Side right Reps/Minutes one min with AROM knee flexion post X 1 each LE Comments verbal cues Sidelying Exercises hip adduction Sidelying Exercise HEP Name Reps/Minutes X 10 each side Comments verbal cues reverse clamshell Sidelying Exercise HEP Name Side bilateral Resistance Level4 band Reps/Minutes X 15 Comments verbal cues clamshell Side bilateral Equipment Used level 4 band Reps/Minutes 15 Comments VC to perform slowly Manual Therapy Treatment Consent Patient gave verbal Yes consent for manual treatment Soft Tissue Mobilization illiopsoas Body Location B Mobilization Type Cross-Friction,Rolling Intensity/Depth Moderate Body Position Hooklying glutes Comments glute/piriformis B rolling cross friction Moderate sidelying Manual Techniques R AI L PI Type MET for R AI L PI and pubic shotgun Reps/Duration 6 X 6 sec each Physical Therapy Assessment Goals walking Library Aide Goal (LTG) Pt will report being able to return to >2 mile walks w/ o need for SI belt w/o pain greater than 1/10 06/06/2025 Patient reports walking more than 2 miles with pain 2/10 without SI belt Progressing toward goal LTG Duration 08/04 activities Library Aide Goal (LTG) Pt will report able to do all household and yard work activities w/o inc pain 06/06/2025 Patient reports house work is OK, but cannot do yard work too long. LTG Duration 08/04 strength Short Term Goal (STG Pt will demonstrate independence w/HEP by being able to ) perform with no more than min cues. STG Duration 06/07 Library Aide Goal (LTG) Pt will score at least 4+/5 on all B hip MMT and at least 3/5 LPM to show improved strength to allow pt to do typical household activities w/o pain 06/06/2025 LTG Duration 08/04 Assessment Summary Assessment Patient made strength grade increases for 3 hip MMT L and 3 MMT R LE and L LE met the goal for strength, R still has significant weakness. Patient rates pain 4/10 R glute end of session. Patient is progressing toward goals goals for ambulation ie is performing the distance with less pain, but goal not met for pain level noted in goal, and is able to perform housework, but not yard work without increased pain. Physical Therapy Plan Frequency and Duration Frequency of 2x/Week Treatment Duration of 12 treatment (weeks) Plan of Care Start 05/06/25 Date Plan of Care End 08/04/25 Date Next Visit Focus/Plan Next Note Type Treatment Note Next Visit Plan review and advance exercises, manual to hips, LS, pelvis, Possibly trial of kinesiotaping.
--- NOTE | 2025-06-06 18:00 | PT.OPPN ---
Current Diagnoses Sciatica, unspecified side (06/06/25) Dorsalgia, unspecified (06/06/25) Myalgia, other site (06/06/25) Physical Therapy Progress Note PT OP: Lower Back/Lower Extremity Start: 05/06/25 08:02 Freq: Status: Active Protocol: Document 06/06/25 18:00 DCW (Rec: 06/09/25 09:42 DCW [id number]) Out-Patient Physical Therapy Visit Information Visit Information Visit Type Progress Note Physical Therapy Assessment Impairments Impairments Activity Tolerance,Balance,Functional Activities, Functional Mobility,Gait,Pain,Posture,ROM,Soft Tissue Mobility,Strength Goals walking Chainstitch Seat Joiner Goal (LTG) Pt will report being able to return to >2 mile walks w/ o need for SI belt w/o pain greater than 1/10 06/06/2025 Patient reports walking more than 2 miles with pain 2/10 without SI belt Progressing toward goal LTG Duration 08/04 activities Correction Goal (LTG) Pt will report able to do all household and yard work activities w/o inc pain 06/06/2025 Patient reports house work is OK, but cannot do yard work too long. LTG Duration 08/04 strength Short Term Goal (STG Pt will demonstrate independence w/HEP by being able to ) perform with no more than min cues. STG Duration 06/07 Chainstitch Seat Joiner Goal (LTG) Pt will score at least 4+/5 on all B hip MMT and at least 3/5 LPM to show improved strength to allow pt to do typical household activities w/o pain 06/06/2025 LTG Duration 08/04 Assessment Summary Assessment Pt making some gains toward goals, but still exhibiting right LE weakness and still experiencing pain with walking and yard work, although it has improved since initial evaluation. Will benefit from continued skilled therapy with focus on strengthening, pain control, activity tolerance, and functional mobility. Physical Therapy Plan Frequency and Duration Frequency of 2x/Week Treatment Duration of 12 treatment (weeks) Plan of Care Start 05/06/25 Date Plan of Care End 08/04/25 Date Next Visit Focus/Plan Next Note Type Treatment Note Next Visit Plan review and advance exercises, manual to hips, LS, pelvis, Possibly trial of kinesiotaping.
--- NOTE | 2025-06-11 12:33 | PT.OTN ---
Current Diagnoses Sciatica, unspecified side (06/11/25) Dorsalgia, unspecified (06/11/25) Myalgia, other site (06/11/25) Physical Therapy Treatment Note PT OP: Lower Back/Lower Extremity Start: 05/06/25 08:02 Freq: Status: Active Protocol: Document 06/11/25 10:43 AB (Rec: 06/11/25 11:35 AB [id number]) Out-Patient Physical Therapy Visit Information Visit Information Visit Type Treatment Note Visit Note [id number] Visit Start Time 10:48 Visit Stop Time 11:33 Visit Number 9 Number of HEALTH FACILITIES SURVEYOR Visits 6 Progress Note Due 07/06/25 OP-PT Subjective Patient Comments Patient Comments Patient reports having way less pain, does have pain for a while post ex, but then feels better. Patient reports still has post R LE pain doesn't reach knee / start of session. Therapeutic Exercises Supine Exercises breathing from diaphragm Supine Exercise Name in mod restorative poseHEP Reps/Minutes 3 min Comments verbal and tactile cues piriformis stretch Supine Exercise Name HEP Side right Reps/Minutes 60 sec each LE Comments verbal and tactile cues Mod ivett stretch Supine Exercise Name HEP Side right Reps/Minutes one min with AROM knee flexion post X 1 each LE Comments verbal cues Sidelying Exercises hip adduction Sidelying Exercise HEP Name Reps/Minutes X 10 each side X 2 Comments tactile cues for LE position, monitered for tolerance side plank Side bilateral Reps/Minutes 7 sec X 3 X 2each side Comments monitored for tolerance reverse clamshell Sidelying Exercise HEP Name Side bilateral Resistance Level4 band Reps/Minutes X 15 Comments review, Sitting Exercises seated MET for R AI L PI self MET Sitting Exercise post stretches post strengthening Name Reps/Minutes 6 X 6 seconds X 2 Comments verbal cues Standing Exercises glute med isometric Reps/Minutes one minute each side Comments TACTILE CUES FOR AMOUNT OF FORCE Pallof Press Side bilateral Resistance level 4 royal blue Reps/Minutes X 15 each side Comments verbal and visual cues squat Standing Exercise sit to stand with band HEP Name Side bilateral Resistance level 4 band Reps/Minutes then 2X 10 Comments Review of hip hinge, VC to inc hip hinge Physical Therapy Assessment Goals walking Finishing Department Supervisor Goal (LTG) Pt will report being able to return to >2 mile walks w/ o need for SI belt w/o pain greater than 1/10 06/06/2025 Patient reports walking more than 2 miles with pain 2/10 without SI belt Progressing toward goal LTG Duration 08/04 activities Fci Goal (LTG) Pt will report able to do all household and yard work activities w/o inc pain 06/06/2025 Patient reports house work is OK, but cannot do yard work too long. LTG Duration 08/04 strength Short Term Goal (STG Pt will demonstrate independence w/HEP by being able to ) perform with no more than min cues. STG Duration 06/07 Finishing Department Supervisor Goal (LTG) Pt will score at least 4+/5 on all B hip MMT and at least 3/5 LPM to show improved strength to allow pt to do typical household activities w/o pain 06/06/2025 LTG Duration 08/04 Assessment Summary Assessment Chirs rates R glute pain 1/10 end of session, Pain did increase post stretches and post strengthening, but decreased back to 1/10 post self MET. Physical Therapy Plan Frequency and Duration Frequency of 2x/Week Treatment Duration of 12 treatment (weeks) Plan of Care Start 05/06/25 Date Plan of Care End 08/04/25 Date Next Visit Focus/Plan Next Note Type Treatment Note Next Visit Plan review and advance exercises, manual to hips, LS, pelvis, .
--- NOTE | 2025-06-11 12:34 | PT.OTN ---
Current Diagnoses Sciatica, unspecified side (06/11/25) Dorsalgia, unspecified (06/11/25) Myalgia, other site (06/11/25) Physical Therapy Treatment Note PT OP: Lower Back/Lower Extremity Start: 05/06/25 08:02 Freq: Status: Active Protocol: Document 06/11/25 10:43 AB (Rec: 06/11/25 11:35 AB [id number]) Out-Patient Physical Therapy Visit Information Visit Information Visit Type Treatment Note Visit Note [id number] Visit Start Time 10:48 Visit Stop Time 11:33 Visit Number 9 Number of PRACTICE COORDINATOR Visits 6 Progress Note Due 07/06/25 OP-PT Subjective Patient Comments Patient Comments Patient reports having way less pain, does have pain for a while post ex, but then feels better. Patient reports still has post R LE pain doesn't reach knee / start of session. Therapeutic Exercises Supine Exercises breathing from diaphragm Supine Exercise Name in mod restorative poseHEP Reps/Minutes 3 min Comments verbal and tactile cues piriformis stretch Supine Exercise Name HEP Side right Reps/Minutes 60 sec each LE Comments verbal and tactile cues Mod ivett stretch Supine Exercise Name HEP Side right Reps/Minutes one min with AROM knee flexion post X 1 each LE Comments verbal cues Sidelying Exercises hip adduction Sidelying Exercise HEP Name Reps/Minutes X 10 each side X 2 Comments tactile cues for LE position, monitered for tolerance side plank Side bilateral Reps/Minutes 7 sec X 3 X 2each side Comments monitored for tolerance reverse clamshell Sidelying Exercise HEP Name Side bilateral Resistance Level4 band Reps/Minutes X 15 Comments review, Sitting Exercises seated MET for R AI L PI self MET Sitting Exercise post stretches post strengthening Name Reps/Minutes 6 X 6 seconds X 2 Comments verbal cues Standing Exercises glute med isometric Reps/Minutes one minute each side Comments TACTILE CUES FOR AMOUNT OF FORCE Pallof Press Side bilateral Resistance level 4 royal blue Reps/Minutes X 15 each side Comments verbal and visual cues squat Standing Exercise sit to stand with band HEP Name Side bilateral Resistance level 4 band Reps/Minutes then 2X 10 Comments Review of hip hinge, VC to inc hip hinge Physical Therapy Assessment Goals walking Email Engineer Goal (LTG) Pt will report being able to return to >2 mile walks w/ o need for SI belt w/o pain greater than 1/10 06/06/2025 Patient reports walking more than 2 miles with pain 2/10 without SI belt Progressing toward goal LTG Duration 08/04 activities Detention Goal (LTG) Pt will report able to do all household and yard work activities w/o inc pain 06/06/2025 Patient reports house work is OK, but cannot do yard work too long. LTG Duration 08/04 strength Short Term Goal (STG Pt will demonstrate independence w/HEP by being able to ) perform with no more than min cues. STG Duration 06/07 Email Engineer Goal (LTG) Pt will score at least 4+/5 on all B hip MMT and at least 3/5 LPM to show improved strength to allow pt to do typical household activities w/o pain 06/06/2025 LTG Duration 08/04 Assessment Summary Assessment Chirs rates R glute pain 1/10 end of session, Pain did increase post stretches and post strengthening, but decreased back to 1/10 post self MET. Physical Therapy Plan Frequency and Duration Frequency of 2x/Week Treatment Duration of 12 treatment (weeks) Plan of Care Start 05/06/25 Date Plan of Care End 08/04/25 Date Next Visit Focus/Plan Next Note Type Treatment Note Next Visit Plan review and advance exercises, manual to hips, LS, pelvis, .
--- NOTE | 2025-06-13 12:29 | PT.OTN ---
Current Diagnoses Sciatica, unspecified side (06/13/25) Dorsalgia, unspecified (06/13/25) Myalgia, other site (06/13/25) Physical Therapy Treatment Note PT OP: Lower Back/Lower Extremity Start: 05/06/25 08:02 Freq: Status: Active Protocol: Document 06/13/25 10:47 AB (Rec: 06/13/25 11:38 AB [id number]) Out-Patient Physical Therapy Visit Information Visit Information Visit Type Treatment Note Visit Note [id number] Visit Start Time 10:50 Visit Stop Time 11:35 Visit Number 10 Number of MAC DEVELOPER Visits 2 Progress Note Due 07/06/25 OP-PT Subjective Patient Comments Patient Comments Patient reports she is better, got up this morning took a walk was pain free, is a little sore now after the walk. No sharp pain or buttock pain during the walk Therapeutic Exercises Supine Exercises piriformis stretch Supine Exercise Name HEP Side right Reps/Minutes 60 sec each LE Comments verbal and tactile cues Mod ivett stretch Supine Exercise Name HEP Side right Reps/Minutes one min with AROM knee flexion post X 1 each LE Comments verbal cues Standing Exercises glute med isometric Reps/Minutes one minute each side Comments VC for UE positiing to avoid twisting core prone hip ext Standing Exercise upper body resting on raised mat HEP Name Side bilateral Reps/Minutes X10 Comments verbal cues, monitored for pain squat Standing Exercise sit to stand with band HEP Name Side bilateral Resistance level 4 band Equipment Used holding 5 lb weights Reps/Minutes 2X15 Comments Review of hip hinge, VC to inc hip hinge Manual Therapy Treatment Soft Tissue Mobilization illiopsoas Body Location B Mobilization Type Cross-Friction,Rolling Intensity/Depth Moderate Body Position Hooklying glutes Comments glute/piriformis B rolling cross friction Moderate sidelying Physical Therapy Assessment Goals walking Non Garment Sewing Machine Operator Goal (LTG) Pt will report being able to return to >2 mile walks w/ o need for SI belt w/o pain greater than 1/10 06/06/2025 Patient reports walking more than 2 miles with pain 2/10 without SI belt Progressing toward goal LTG Duration 08/04 activities Custodial Goal (LTG) Pt will report able to do all household and yard work activities w/o inc pain 06/06/2025 Patient reports house work is OK, but cannot do yard work too long. LTG Duration 08/04 strength Short Term Goal (STG Pt will demonstrate independence w/HEP by being able to ) perform with no more than min cues. STG Duration 06/07 Custodial Goal (LTG) Pt will score at least 4+/5 on all B hip MMT and at least 3/5 LPM to show improved strength to allow pt to do typical household activities w/o pain 06/06/2025 LTG Duration 08/04 Assessment Summary Assessment Patient into session reports able to walk without pain increasing. Patient reports pain 1/10 post manual and stretching, decreased 0/10 post glute med isometric. Physical Therapy Plan Frequency and Duration Frequency of 2x/Week Treatment Duration of 12 treatment (weeks) Plan of Care Start 05/06/25 Date Plan of Care End 08/04/25 Date Next Visit Focus/Plan Next Note Type Treatment Note Next Visit Plan review and advance exercises, manual to hips, LS, pelvis, .
--- NOTE | 2025-06-18 10:39 | PT.OPPN ---
Current Diagnoses Sciatica, unspecified side (06/18/25) Dorsalgia, unspecified (06/18/25) Myalgia, other site (06/18/25) Physical Therapy Progress Note PT OP: Lower Back/Lower Extremity Start: 05/06/25 08:02 Freq: Status: Active Protocol: Document 06/18/25 07:30 [facility] (Rec: 06/18/25 10:39 [facility] [id number]) Out-Patient Physical Therapy Visit Information Visit Information Visit Type Progress Note Visit Note [id number] Visit Start Time 09:03 Visit Stop Time 09:43 Visit Number 11 Number of MACHINIST MATE Visits 0 Progress Note Due 07/18/25 OP-PT Subjective Patient Comments Patient Comments reports pain is improved significantly. walking goes well. bending still difficult Posture Evaluation Lucia Postural Classification System Lucia Postural Posterior/Anterior Classifications Vertical Compression 2 Test Elbow Flexion Test 4 Lumbar Protective 3 Mechanism Left AP Lumbar Protective 2 Mechanism Right AP Lumbar Protective 3 Mechanism Left PA Lumbar Protective 3 Mechanism Right PA Hip Strength Hip Manual Muscle Testing Right Flexion (L2) 5 Normal Extension (S1) 3+ Fair+ Abduction 4- Good- Adduction 5 Normal External Rotation 5 Normal Internal Rotation 5 Normal Comments pain in buttocks B hip ext, R abd Left Flexion (L2) 5 Normal Extension (S1) 3+ Fair+ Abduction 4+ Good+ Adduction 5 Normal External Rotation 5 Normal Internal Rotation 5 Normal Knee Strength Knee Manual Muscle Testing Right Flexion (S2) 5 Normal Extension (L3) 5 Normal Left Flexion (S2) 5 Normal Extension (L3) 5 Normal Therapeutic Exercises Prone Exercises hip ext Side bilateral Equipment Used pillow under abdomen Reps/Minutes 12 ea Comments cues comfortable range Standing Exercises sidesteps Side bilateral Equipment Used L2 Reps/Minutes 2x8ft ea Comments cues posture squat Standing Exercise tap chair Name Side bilateral Resistance level 4 band Reps/Minutes 10 Comments inc depth cues & foot Manual Therapy Treatment Consent Patient gave verbal Yes consent for manual treatment Soft Tissue Mobilization ITB Body Location R Intensity/Depth Moderate Body Position Hooklying Comments w/hip IR and add-manual rolling and cupping glutes Comments R lat glutes w/cupping w/IR Joint Mobilizations hip Comments R IR free the ball c/r innominate Comments L ext s/l c/r, R add c/r sacrum Joint UPA L w/knee flex and LTR prone Physical Therapy Assessment Goals walking Discharge Door Operator Goal (LTG) Pt will report being able to return to >2 mile walks w/ o need for SI belt w/o pain greater than 1/10 06/06/2025 Patient reports walking more than 2 miles with pain 2/10 without SI belt Progressing toward goal 06/18-1-2/10 LTG Duration 08/04 activities Intermediate Goal (LTG) Pt will report able to do all household and yard work activities w/o inc pain 06/06/2025 Patient reports house work is OK, but cannot do yard work too long. 06/18-bending and squat still irritates things, but weedwacking etc ok LTG Duration 08/04 strength Short Term Goal (STG Pt will demonstrate independence w/HEP by being able to ) perform with no more than min cues. STG Duration achieved advancing as able Intermediate Goal (LTG) Pt will score at least 4+/5 on all B hip MMT and at least 3/5 LPM to show improved strength to allow pt to do typical household activities w/o pain 06/06/202506/18-improved LTG Duration 08/04 Assessment Summary Assessment Pt encouraged to pay attention to which exercises are painful and stop doing those. She is making progress w/ strenght overall but still has weak abd and ext w/pain w/ext especially. COnt PT for improved function and dec pain. Physical Therapy Plan Frequency and Duration Frequency of 2x/Week Treatment Duration of 12 treatment (weeks) Plan of Care Start 05/06/25 Date Plan of Care End 08/04/25 Date Therapeutic Interventions Therapeutic Balance Training,Gait Training,Home Exercise Program, Interventions Joint Mobilizations,Manual Therapy,Neuromuscular Re- education,Patient/Caregiver Education,Self-Care/Home Management,Taping,Therapeutic Activities,Therapeutic Exercises Modalities Cold Pack/Ice Massage,Electric Stimulation,Hot Packs, Infrared Therapy,Traction- Mechanical,Ultrasound Next Visit Focus/Plan Next Note Type Treatment Note Next Visit Plan figure out what exercise is making pain worse, adjust HEP to focus on hip abd and ext and core, MMT showed good strength w/flex, add and rotations of hipsmanual to dec pain w/hip ext B
--- NOTE | 2025-06-26 11:57 | PT.OTN ---
Current Diagnoses Sciatica, unspecified side (06/26/25) Dorsalgia, unspecified (06/26/25) Myalgia, other site (06/26/25) Physical Therapy Treatment Note PT OP: Lower Back/Lower Extremity Start: 05/06/25 08:02 Freq: Status: Active Protocol: Document 06/26/25 10:49 [facility] (Rec: 06/26/25 11:36 [facility] [id number]) Out-Patient Physical Therapy Visit Information Visit Information Visit Type Treatment Note Visit Note [id number] Visit Start Time 10:49 Visit Stop Time 11:32 Visit Number 12 Number of STORY EDITOR Visits 1 Progress Note Due 07/18/25 OP-PT Subjective Patient Comments Patient Comments Patient reports she is better, wakes up pain free most of time, but post exercise and walking dogs pain increases. Patient tried breaking up ex which helped some but not significantly. Patient rates pain 2/10 start of session. R SI glute. Therapeutic Exercises Supine Exercises piriformis stretch Supine Exercise Name HEP Side right Reps/Minutes 60 sec each LE Comments verbal and tactile cues Mod akira stretch Supine Exercise Name HEP Side right Reps/Minutes one min with AROM knee flexion post X 1 each LE Comments verbal cues bridge Side bilateral Reps/Minutes X15 Comments REview of segmental bridge isometric Supine Exercise Name DL isometric Side bilateral Reps/Minutes 30 sec Comments cues breathing and knees past hips Sidelying Exercises side plank Side bilateral Reps/Minutes 7 sec X 5 each side Comments Patient ed to inc to X 5 for HEP Reports pain inc to 3/ 10 open book Side bilateral Reps/Minutes 10 Comments VC for LE's to 90 deg Sitting Exercises seated MET for R AI L PI self MET Sitting Exercise post stretches post strengthening Name Reps/Minutes 6 X 6 seconds X 2 Comments verbal cues Standing Exercises prone hip ext Standing Exercise upper body resting on raised mat HEP Name Side bilateral Reps/Minutes X 15 without band X 1 with band level one Comments verbal cues, monitored for pain Manual Therapy Treatment Consent Patient gave verbal Yes consent for manual treatment Soft Tissue Mobilization illiopsoas Body Location B Mobilization Type Cross-Friction,Rolling Intensity/Depth Moderate Body Position Hooklying Physical Therapy Assessment Goals walking Senior Living Goal (LTG) Pt will report being able to return to >2 mile walks w/ o need for SI belt w/o pain greater than 1/10 06/06/2025 Patient reports walking more than 2 miles with pain 2/10 without SI belt Progressing toward goal 06/18-1-2/10 LTG Duration 08/04 activities Community Support Worker Goal (LTG) Pt will report able to do all household and yard work activities w/o inc pain 06/06/2025 Patient reports house work is OK, but cannot do yard work too long. 06/18-bending and squat still irritates things, but weedwacking etc ok LTG Duration 08/04 strength Short Term Goal (STG Pt will demonstrate independence w/HEP by being able to ) perform with no more than min cues. STG Duration achieved advancing as able Community Support Worker Goal (LTG) Pt will score at least 4+/5 on all B hip MMT and at least 3/5 LPM to show improved strength to allow pt to do typical household activities w/o pain 06/06/202506/18-improved LTG Duration 08/04 Assessment Summary Assessment Tyrel had inc pain post Mod Akira stretch which decreased post additional exercises and again inc to 3/ 10 with side plank. Post self MET for Davis Stauffer PI rated pain 09/27 end of session. Physical Therapy Plan Frequency and Duration Frequency of 2x/Week Treatment Duration of 12 treatment (weeks) Plan of Care Start 05/06/25 Date Plan of Care End 08/04/25 Date Next Visit Focus/Plan Next Note Type Treatment Note Next Visit Plan figure out what exercise is making pain worse/ revisit Mod Akira and side plank, adjust HEP to focus on hip abd and ext and core, MMT showed good strength w/flex, add and rotations of hipsmanual to dec pain w/hip ext B
--- NOTE | 2025-07-02 09:39 | PT.OTN ---
Current Diagnoses Sciatica, unspecified side (07/02/25) Dorsalgia, unspecified (07/02/25) Myalgia, other site (07/02/25) Physical Therapy Treatment Note PT OP: Lower Back/Lower Extremity Start: 05/06/25 08:02 Freq: Status: Active Protocol: Document 07/02/25 08:21 [facility] (Rec: 07/02/25 09:05 [facility] [id number]) Out-Patient Physical Therapy Visit Information Visit Information Visit Type Treatment Note Visit Note [id number] Visit Start Time 08:21 Visit Stop Time 09:04 Visit Number 13 Number of CLOAK ROOM ATTENDANT Visits 2 Progress Note Due 07/18/25 OP-PT Subjective Patient Comments Patient Comments Patient rates pain 2/10 R glute/SI area, reports sometimes has no pain, is much better, would like to get rid of the 2/10 R glute SI pain. Therapeutic Exercises Supine Exercises piriformis stretch Supine Exercise Name HEP Side bilateral Reps/Minutes 60 sec each LE X 2 Comments verbal and tactile cues Mod ivett stretch Supine Exercise Name HEP Side bilateral Reps/Minutes one min with AROM knee flexion post X 10 each LE Comments verbal cues for breathing from diaphragm isometric Supine Exercise Name DL isometric Side bilateral Reps/Minutes 30 sec X 2 Comments cues breathing and knees past hips Sidelying Exercises side plank Side bilateral Reps/Minutes 7 sec X 8 each side Comments Patient ed to increase to X 8 reps at home Sitting Exercises Seated hip IR Side bilateral Resistance level one band Reps/Minutes X 15 without band X 15 X 2 with band Comments verbal cues for dec speed on ecc seated MET for R AI L PI self MET Sitting Exercise post stretches post strengthening Name Reps/Minutes 6 X 6 seconds X 1 Comments verbal cues Standing Exercises glute med isometric Reps/Minutes one minute each side Comments monitored for inc pain post Pallof Press Side bilateral Resistance level 5 double band Reps/Minutes X 15 each side Comments verbal and visual cues prone hip ext Standing Exercise upper body resting on raised mat HEP Name Side bilateral Reps/Minutes X 15 without band X 1 with band level one Comments verbal cues, for bracing with abdominals Physical Therapy Assessment Goals walking Shelter Goal (LTG) Pt will report being able to return to >2 mile walks w/ o need for SI belt w/o pain greater than 1/10 06/06/2025 Patient reports walking more than 2 miles with pain 2/10 without SI belt Progressing toward goal 06/18-1-2/10 LTG Duration 08/04 activities Shelter Goal (LTG) Pt will report able to do all household and yard work activities w/o inc pain 06/06/2025 Patient reports house work is OK, but cannot do yard work too long. 06/18-bending and squat still irritates things, but weedwacking etc ok LTG Duration 08/04 strength Short Term Goal (STG Pt will demonstrate independence w/HEP by being able to ) perform with no more than min cues. STG Duration achieved advancing as able Shelter Goal (LTG) Pt will score at least 4+/5 on all B hip MMT and at least 3/5 LPM to show improved strength to allow pt to do typical household activities w/o pain 06/06/202506/18-improved LTG Duration 08/04 Assessment Summary Assessment Tyrel rates pain just ache .5/10 Noted dec pain and improved alignment SI post seated hip IR with and without band. Good sujey to progression of band with Pallof press and inc reps side plank. Physical Therapy Plan Frequency and Duration Frequency of 2x/Week Treatment Duration of 12 treatment (weeks) Plan of Care Start 05/06/25 Date Plan of Care End 08/04/25 Date Next Visit Focus/Plan Next Note Type Treatment Note Next Visit Plan adjust HEP to focus on hip abd and ext and core, MMT showed good strength w/flex, add and rotations of hips manual to dec pain w/hip pain with hip ex B
--- NOTE | 2025-07-09 13:01 | PT.OTN ---
Current Diagnoses Sciatica, unspecified side (07/09/25) Dorsalgia, unspecified (07/09/25) Myalgia, other site (07/09/25) Physical Therapy Treatment Note PT OP: Lower Back/Lower Extremity Start: 05/06/25 08:02 Freq: Status: Active Protocol: Document 07/09/25 09:39 [facility] (Rec: 07/09/25 10:48 [facility] [id number]) Out-Patient Physical Therapy Visit Information Visit Information Visit Type Treatment Note Visit Note [id number] Visit Start Time 09:48 Visit Stop Time 10:35 Visit Number 14 Number of FRAUD INVESTIGATOR Visits 3 Progress Note Due 07/18/25 OP-PT Subjective Patient Comments Patient Comments Patient reports she had a fall on the boat from standing. Patient reports pain is 1/10 start of session , and is having periods of hours of no pain and LE pain is gone, just a little in back and SI area. Patient reports she is doing exercises, doesn't think she needs PT anymore. Therapeutic Exercises Supine Exercises piriformis stretch Supine Exercise Name HEP Side bilateral Reps/Minutes 60 sec each LE X 2 Comments verbal and tactile cues Mod ivett stretch Supine Exercise Name HEP Side bilateral Reps/Minutes one min with AROM knee flexion post X 10 each LE Comments verbal cues for breathing from diaphragm Standing Exercises squat Standing Exercise sit to stand Name Side bilateral Resistance level 4 band Reps/Minutes 10 X 3 Comments vc to keep tension on band Manual Therapy Treatment Consent Patient gave verbal Yes consent for manual treatment Soft Tissue Mobilization illiopsoas Body Location B Mobilization Type Cross-Friction,Rolling Intensity/Depth Moderate Body Position Hooklying glutes Mobilization Type Cross-Friction,Rolling,Other Intensity/Depth Moderate Body Position Sidelying Manual Techniques R AI L PI Type MET for R AI L PI and pubic shotgun Reps/Duration 6 X 6 sec each Self-Care/Home Management Treatment Education Other Education Patient ed with visual cues for mowing and using larry Physical Therapy Assessment Goals walking Assisted Goal (LTG) Pt will report being able to return to >2 mile walks w/ o need for SI belt w/o pain greater than 1/10 06/06/2025 Patient reports walking more than 2 miles with pain 2/10 without SI belt Progressing toward goal 06/18-1-10/28 LTG Duration 08/04 met 07/09/2025 activities Assisted Goal (LTG) Pt will report able to do all household and yard work activities w/o inc pain 06/06/2025 Patient reports house work is OK, but cannot do yard work too long. 06/18-bending and squat still irritates things, but weedwacking etc ok 07/09/2025 weed waking and mowing continues to be painful LTG Duration 08/04 strength Short Term Goal (STG Pt will demonstrate independence w/HEP by being able to ) perform with no more than min cues. STG Duration achieved advancing as able Risk Investigator Goal (LTG) Pt will score at least 4+/5 on all B hip MMT and at least 3/5 LPM to show improved strength to allow pt to do typical household activities w/o pain 06/06/202506/18-improved LTG Duration 08/04 Assessment Summary Assessment Tyrel reports having no pain end of session. verbal and visual discussion of using mower, garden equip with patient ed to perform 1/2 normal amount and note symptoms then determine whether to increase or decrease gardening time Physical Therapy Plan Frequency and Duration Frequency of 2x/Week Treatment Duration of 12 treatment (weeks) Plan of Care Start 05/06/25 Date Plan of Care End 08/04/25 Date Next Visit Focus/Plan Next Note Type Discharge Summary Next Visit Plan Possibly DC if goal for yard work is met. adjust HEP to focus on hip abd and ext and core, MMT showed good strength w/flex, add and rotations of hips manual to dec pain w/hip pain with hip ex B
--- NOTE | 2025-07-15 18:25 | PT.OPDS ---
Current Diagnoses Sciatica, unspecified side (07/15/25) Dorsalgia, unspecified (07/15/25) Myalgia, other site (07/15/25) Visit Care Team Role Provider Type Akbar Delacruz MD Attending Provider Physician Family Provider Primary Care Provider Referring Provider Specialty: Internal Medicine Address: [address] [place] [address] Email: [email or web address] Visit Number Visit Number 15 Discharge Summary PT OP: Lower Back/Lower Extremity Start: 05/06/25 08:02 Freq: Status: Active Protocol: Document 07/15/25 15:24 [facility] (Rec: 07/15/25 16:18 [facility] [id number]) Out-Patient Physical Therapy Visit Information Visit Information Visit Type Discharge Summary Visit Start Time 15:23 Visit Stop Time 16:01 Visit Number 15 OP-PT Subjective Patient Comments Patient Comments Pt reports feels better with walking now and now starting to feel better doing stuff vs worse. Posture Evaluation Lucia Postural Classification System Lumbar Protective 3 Mechanism Left AP Lumbar Protective 2 Mechanism Right AP Lumbar Protective 3 Mechanism Left PA Lumbar Protective 3 Mechanism Right PA Hip Strength Hip Manual Muscle Testing Right Flexion (L2) 5 Normal Extension (S1) 5 Normal Abduction 4+ Good+ Adduction 5 Normal External Rotation 5 Normal Internal Rotation 5 Normal Left Flexion (L2) 5 Normal Extension (S1) 4+ Good+ Abduction 4+ Good+ Adduction 5 Normal External Rotation 5 Normal Internal Rotation 5 Normal Therapeutic Exercises Other Exercises self roll out Other Exercise Name R glutes w/ball and hs and glute w/foam roll Therapeutic Activity Therapeutic Activity gardening Reps/Minutes 15min Comments 1. hip hinges w/dowel x15 2. hip hinge to squat w/dowel x10 3. seated on small stool working on wt shift and rotation vs back rotation 4. working on strongest stride stance position Manual Therapy Treatment Consent Patient gave verbal Yes consent for manual treatment Soft Tissue Mobilization glutes Body Location R glutes Mobilization Type Rolling,Other Comments w/IR LB Body Location B ES Body Position s/l Joint Mobilizations Lumbar Comments downglide L L4 and 5 c/r sacrum Comments R PA w/pelvic tilt seated Physical Therapy Assessment Goals walking [facility] Goal (LTG) Pt will report being able to return to >2 mile walks w/ o need for SI belt w/o pain greater than 1/10 06/06/2025 Patient reports walking more than 2 miles with pain 2/10 without SI belt Progressing toward goal 06/18-1-10/28 LTG Duration 08/04 met 07/09/2025 activities [facility] Goal (LTG) Pt will report able to do all household and yard work activities w/o inc pain 06/06/2025 Patient reports house work is OK, but cannot do yard work too long. 06/18-bending and squat still irritates things, but weedwacking etc ok 07/09/2025 weed waking and mowing continues to be painful 07/15-dec endurance d/t back pain w/yard work. no issues w/house work LTG Duration 08/04 strength Short Term Goal (STG Pt will demonstrate independence w/HEP by being able to ) perform with no more than min cues. STG Duration achieved advancing as able Healthcare Financial Analyst Goal (LTG) Pt will score at least 4+/5 on all B hip MMT and at least 3/5 LPM to show improved strength to allow pt to do typical household activities w/o pain 06/06/202506/18-improved LTG Duration mostly achieved Assessment Summary Assessment Pt feels ready for DC and has met most goals. Much improved strength and function and has quicker recovery after she does get back pain. no longer has leg pain at this time. DC to HEP and working on body mechanics. Educated to get new shoes and shown how hiking shoes were worn out Physical Therapy Plan Discharge Physical Therapy Discharge Reasons Goals Met
== END 2025-07-16 09:58 | disposition home or self-care (01) ==
LOC: PHYS 15:15
PROVIDERS: Family Provider Internal Medicine; PCP Internal Medicine; Referring Provider Internal Medicine; Visit Provider Internal Medicine
DX: M54.9 Dorsalgia, unspecified (principal); M79.18 Myalgia, other site; M54.30 Sciatica, unspecified side
CPT/HCPCS: 97110; 97140; 97162; 97530